=== PATIENT | female | born 1950 | race Caucasian/White ===

== ENCOUNTER 2017-06-29 10:29 | Observation (INO) | payer MEDICARE, OTHER ==
[~2017-06-29] VITALS: Ht 162.6 cm; Wt 78.1 kg
[~2017-06-29 10:29] MED LIST: ACET325 PO; Augmentin 500-1 EACH PO; Bystolic10 MG; DIGO.25 PO; FURO20 PO; GUAIFENESIN ER600 MG PO; LISI5 PO; METO25 PO; METO50 PO; Micro-K10 MEQ PO; Norco 5-325 Ta1 EACH PO; PANT40 PO; SPIR25 PO; SPIR50 PO; XARELTO10 MG PO; XARELTO20 MG PO
[2017-06-29 11:12] LABS: BASOPHILS ABSOLUTE AUTO 0.02 K/mm3 (0.00-0.23); BASOPHILS PERCENT AUTO 0 % (0-2); EOSINOPHILS ABSOLUTE AUTO 0.11 K/mm3 (0.00-0.68); EOSINOPHILS PERCENT AUTO 1 % (0-6); Hematocrit 45.4 % (33.0-51.0); Hemoglobin 14.7 g/dL (11.5-16.0); IMMATURE GRAN ABSOLUTE AUTO 0.02 K/mm3 (0.00-0.10); IMMATURE GRAN PERCENT AUTO 0 % (0-1); LYMPHOCYTES ABSOLUTE AUTO 1.44 K/mm3 (0.84-5.20); LYMPHOCYTES PERCENT AUTO 16 % (21-46); MONOCYTES ABSOLUTE AUTO 0.95 K/mm3 (0.16-1.47); MONOCYTES PERCENT AUTO 10 % (4-13); Mean Corpuscular HGB 30.6 pg (26.0-34.0); Mean Corpuscular HGB Conc 32.4 g/dL (31.5-36.5); Mean Corpuscular Volume 94 fL (80-100); Mean Platelet Volume 12.1 fL (9.1-12.4); NEUTROPHILS ABSOLUTE AUTO 6.68 K/mm3 (1.96-9.15); NEUTROPHILS PERCENT AUTO 73 % (41-73); Platelet Count 230 K/mm3 (150-400); RDW Coefficient Variation 15.1 % (11.7-14.2); RDW Standard Deviation 51.8 fL (35.1-46.3); Red Blood Cell Count 4.81 M/mm3 (3.80-5.20); White Blood Cell Count 9.22 K/mm3 (4.00-11.30)
[2017-06-29 11:37] LABS: Alanine Aminotransfer (ALT/SGP 22 U/L (12-78); Albumin, Blood 3.6 g/dL (3.4-5.0); Albumin/Globulin Ratio 1.1 (0.8-1.8); Alk Phos 72 U/L (50-136); Anion Gap 6 mmol/L (6-16); Aspartate Aminotrans (AST/SGOT 19 U/L (12-37); Bilirubin, Total 1.3 mg/dL (0.1-1.0); Blood Urea Nitrogen 24 mg/dL (8-24); Bun/Creatinine Ratio 30.4 (12.0-20.0); CO2, Blood 29 mmol/L (21-32); Calcium, Blood 9.2 mg/dL (8.5-10.1); Chloride, Blood 107 mmol/L (98-108); Creatinine, Blood 0.79 mg/dL (0.40-1.00); Globulin, Blood 3.3 g/dL (2.2-4.0); Glomerular Filtration Rate >60 (60-); Glucose, Blood 103 mg/dL (70-99); Potassium, Blood 3.9 mmol/L (3.5-5.5); Sodium, Blood 142 mmol/L (136-145); Total Protein, Blood 6.9 g/dL (6.4-8.2); Troponin I 0.023 ng/mL (0.000-0.040)
[2017-06-29] MEDS ORDERED: Hair, Skin & N1 EACH PO (17:11)
[2017-06-29] MEDS ORDERED: VITAMIN D32000 UNIT PO (17:12)
[2017-06-29] MEDS ORDERED: BIOTIN5000 MCG (17:13)
[2017-06-29] MEDS ORDERED: CYAN500 PO (17:13)
[2017-06-29] MEDS ORDERED: [UNRECOGNIZED DRUG - OTHER] (17:15)
[2017-06-29] MEDS ORDERED: Fish Oil 10001000 MG GT (17:15)
[2017-06-30 04:33] LABS: BASOPHILS ABSOLUTE AUTO 0.03 K/mm3 (0.00-0.23); BASOPHILS PERCENT AUTO 0 % (0-2); EOSINOPHILS ABSOLUTE AUTO 0.22 K/mm3 (0.00-0.68); EOSINOPHILS PERCENT AUTO 3 % (0-6); Hematocrit 42.2 % (33.0-51.0); Hemoglobin 13.6 g/dL (11.5-16.0); IMMATURE GRAN ABSOLUTE AUTO 0.02 K/mm3 (0.00-0.10); IMMATURE GRAN PERCENT AUTO 0 % (0-1); LYMPHOCYTES ABSOLUTE AUTO 1.14 K/mm3 (0.84-5.20); LYMPHOCYTES PERCENT AUTO 14 % (21-46); MONOCYTES ABSOLUTE AUTO 0.92 K/mm3 (0.16-1.47); MONOCYTES PERCENT AUTO 11 % (4-13); Mean Corpuscular HGB 30.2 pg (26.0-34.0); Mean Corpuscular HGB Conc 32.2 g/dL (31.5-36.5); Mean Corpuscular Volume 94 fL (80-100); Mean Platelet Volume 11.7 fL (9.1-12.4); NEUTROPHILS ABSOLUTE AUTO 5.85 K/mm3 (1.96-9.15); NEUTROPHILS PERCENT AUTO 72 % (41-73); Platelet Count 191 K/mm3 (150-400); RDW Standard Deviation 50.9 fL (35.1-46.3); White Blood Cell Count 8.18 K/mm3 (4.00-11.30)
[2017-06-30 04:49] LABS: Anion Gap 4 mmol/L (6-16); Blood Urea Nitrogen 25 mg/dL (8-24); Bun/Creatinine Ratio 28.7 (12.0-20.0); CO2, Blood 36 mmol/L (21-32); Calcium, Blood 8.6 mg/dL (8.5-10.1); Chloride, Blood 106 mmol/L (98-108); Creatinine, Blood 0.87 mg/dL (0.40-1.00); Glomerular Filtration Rate >60 (60-); Glucose, Blood 97 mg/dL (70-99); Sodium, Blood 146 mmol/L (136-145)
[2017-07-01 06:21] LABS: Anion Gap 4 mmol/L (6-16); Blood Urea Nitrogen 26 mg/dL (8-24); Bun/Creatinine Ratio 34.9 (12.0-20.0); CO2, Blood 36 mmol/L (21-32); Calcium, Blood 8.9 mg/dL (8.5-10.1); Chloride, Blood 104 mmol/L (98-108); Creatinine, Blood 0.75 mg/dL (0.40-1.00); Glomerular Filtration Rate >60 (60-); Glucose, Blood 92 mg/dL (70-99); Potassium, Blood 3.8 mmol/L (3.5-5.5); Sodium, Blood 144 mmol/L (136-145)
[2017-07-01] MEDS ORDERED: LISI5 PO (08:29)
[2017-07-01] MEDS ORDERED: Nicoderm Cq1 EAC1 TOP (08:29)
[2017-07-01] MEDS ORDERED: Coreg12.5 MG PO (08:29)
[2017-07-01] MEDS ORDERED: XARELTO20 MG PO (08:30)
[2017-07-01] MEDS ORDERED: Micro-K10 MEQ PO (08:30)
[2017-07-01] MEDS ORDERED: FURO40 PO (08:30)
[2018-03-29] MEDS ORDERED: Amox Tr-K Clv1 EAC2 PO (17:22)
[2018-04-01] MEDS ORDERED: METO50 PO (14:42)
[2018-05-09] MEDS ORDERED: FURO80 PO (11:40)
== END 2017-07-01 12:04 | disposition home or self-care (01) ==
LOC: ER 10:29 → MEDS 10:30 → ERHOLD 10:30 → ER 11:55 → ERHOLD 11:55 → PCU 16:40 → MEDS 06-30 11:43 → ENPENDDIS 07-01 07:51 → MEDS 07-01 12:04
PROVIDERS: Emergency Medicine; Internal Medicine
DX: I48.2 Chronic atrial fibrillation (principal); I11.0 Hypertensive heart disease with heart failure; I50.21 Acute systolic (congestive) heart failure; J44.9 Chronic obstructive pulmonary disease, unspecified; F17.200 Nicotine dependence, unspecified, uncomplicated; Z90.710 Acquired absence of both cervix and uterus; Z79.01 Long term (current) use of anticoagulants; Z79.899 Other long term (current) drug therapy; Z98.890 Other specified postprocedural states
CPT/HCPCS: 36415; 51702; 71046; 80048; 80053; 83880; 84484; 85025; 93005; 93010; 94640; 94760; 96374; 96375; 96376; 99285; G0378; J1940

== ENCOUNTER 2017-09-13 19:10 | Inpatient (IN) | payer MEDICARE, OTHER ==
[~2017-09-13] VITALS: Ht 162.6 cm; Wt 75.8 kg
[~2017-09-13 19:10] MED LIST changes: -ASPI81CH PO; -LOSA25 PO
[2017-09-13 20:35] LABS: Source, Urine Catheter
[2017-09-13 20:37] LABS: Bilirubin, Urine Neg (Neg); Blood, Urine Neg (Neg); Glucose Qualitative, Urine Neg (Neg); Ketones, Urine Neg (Neg); Leukocyte Esterase, Urine Neg (Neg); Nitrite, Urine Neg (Neg); Protein, Urine Neg (Neg); Urobilinogen, Urine NORM (Normal)
[2017-09-13 20:50] LABS: Appearance, Urine Clear (Clear); Color, Urine Yellow (P-Yellow)
[2017-09-14 05:38] LABS: Alanine Aminotransfer (ALT/SGP 24 U/L (12-78); Albumin, Blood 3.3 g/dL (3.4-5.0); Albumin/Globulin Ratio 0.9 (0.8-1.8); Alk Phos 82 U/L (50-136); Anion Gap 5 mmol/L (6-16); Aspartate Aminotrans (AST/SGOT 24 U/L (12-37); Bilirubin, Total 1.1 mg/dL (0.1-1.0); Blood Urea Nitrogen 26 mg/dL (8-24); Bun/Creatinine Ratio 30.7 (12.0-20.0); CO2, Blood 33 mmol/L (21-32); Calcium, Blood 9.4 mg/dL (8.5-10.1); Chloride, Blood 106 mmol/L (98-108); Creatinine, Blood 0.85 mg/dL (0.40-1.00); Globulin, Blood 3.6 g/dL (2.2-4.0); Glomerular Filtration Rate >60 (60-); Glucose, Blood 101 mg/dL (70-99); Potassium, Blood 3.7 mmol/L (3.5-5.5); Sodium, Blood 144 mmol/L (136-145); Total Protein, Blood 6.9 g/dL (6.4-8.2)
[2017-09-14] MEDS ORDERED: XARELTO20 MG PO (11:51)
[2017-09-14] MEDS ORDERED: LISI5 PO (12:07)
[2017-09-14 14:12] LABS: Mean Platelet Volume 11.9 fL (9.1-12.4); Platelet Count 202 K/mm3 (150-400)
[2017-09-14 14:20] LABS: International Normalized Ratio 1.12; Prothrombin Time Results 11.7 Sec (9.7-11.5)
[2017-09-14 16:10] LABS: Lactate Dehydrogenase, Body Fl 52 U/L; Protein, Body Fluid 1.6 g/dL
[2017-09-14 16:32] LABS: Automated BF WBC Count 0.186 K/mm3 (0-999); Body Fluid WBC Count 186 /mm3 (0-999)
[2017-09-14 18:44] LABS: RBC Count, Body Fluid 218 /mm3 (0-0)
[2017-09-14 19:00] LABS: Appearance, Body Fluid Clear (Clear); Color, Body Fluid Yellow (None-Yellow)
[2017-09-14 19:02] LABS: Total Cell Count, Body Fluid 100
[2017-09-16 06:02] LABS: Anion Gap 5 mmol/L (6-16); Blood Urea Nitrogen 34 mg/dL (8-24); Bun/Creatinine Ratio 35.6 (12.0-20.0); CO2, Blood 36 mmol/L (21-32); Calcium, Blood 8.9 mg/dL (8.5-10.1); Chloride, Blood 101 mmol/L (98-108); Creatinine, Blood 0.96 mg/dL (0.40-1.00); Glomerular Filtration Rate >60 (60-); Glucose, Blood 93 mg/dL (70-99); Potassium, Blood 3.9 mmol/L (3.5-5.5); Sodium, Blood 142 mmol/L (136-145)
[2017-09-17] MEDS ORDERED: ASPI81CH PO (13:18)
[2017-09-17] MEDS ORDERED: LOSA25 PO (13:18)
[2017-09-17] MEDS ORDERED: METO50 PO (13:19)
== END 2017-09-17 12:43 | disposition home or self-care (01) | DRG 291 ==
LOC: ER 19:10 → MEDS 20:30 → ENPENDDIS 09-17 11:00 → MEDS 09-17 12:43
PROVIDERS: Emergency Medicine; Internal Medicine; Radiology Diagnostic Radiology
PROC: 0W993ZX Drainage of Right Pleural Cavity, Percutaneous Approach, Diagnostic (ICD-10-PCS; principal; 2017-09-14)
DX: I11.0 Hypertensive heart disease with heart failure (principal); J96.00 Acute respiratory failure, unspecified whether with hypoxia or hypercapnia; J90 Pleural effusion, not elsewhere classified; I50.23 Acute on chronic systolic (congestive) heart failure; I48.2 Chronic atrial fibrillation; F17.210 Nicotine dependence, cigarettes, uncomplicated; Z91.14 Patient's other noncompliance with medication regimen; Z79.899 Other long term (current) drug therapy
CPT/HCPCS: 32555; 36415; 51702; 71045; 80048; 80053; 81003; 83615; 83880; 84157; 85049; 85610; 85730; 87070; 87075; 87205; 89051; 93005; 93010; 93306; 96374; 99285; J1650; J1940; J2060

== ENCOUNTER → 2017-09-13 | Outpatient (CLI) | payer MEDICARE, OTHER ==
[~2017-09-13] MED LIST changes: +ASPI81CH PO; +BIOTIN5000 MCG; +CYAN500 PO; +Coreg12.5 MG PO; +FURO40 PO; +Fish Oil 10001000 MG GT; +Hair, Skin & N1 EACH PO; +LOSA25 PO; +Nicoderm Cq1 EAC1 TOP; +VITAMIN D32000 UNIT PO; +[UNRECOGNIZED DRUG - OTHER]
[2017-09-13 18:01] LABS: BASOPHILS ABSOLUTE AUTO 0.05 K/mm3 (0.00-0.23); BASOPHILS PERCENT AUTO 1 % (0-2); EOSINOPHILS PERCENT AUTO 1 % (0-6); Hematocrit 42.4 % (33.0-51.0); Hemoglobin 13.9 g/dL (11.5-16.0); IMMATURE GRAN ABSOLUTE AUTO 0.03 K/mm3 (0.00-0.10); IMMATURE GRAN PERCENT AUTO 0 % (0-1); LYMPHOCYTES ABSOLUTE AUTO 0.99 K/mm3 (0.84-5.20); LYMPHOCYTES PERCENT AUTO 13 % (21-46); MONOCYTES ABSOLUTE AUTO 0.73 K/mm3 (0.16-1.47); MONOCYTES PERCENT AUTO 9 % (4-13); Mean Corpuscular HGB Conc 32.8 g/dL (31.5-36.5); Mean Corpuscular Volume 94 fL (80-100); Mean Platelet Volume 12.5 fL (9.1-12.4); NEUTROPHILS ABSOLUTE AUTO 5.97 K/mm3 (1.96-9.15); NEUTROPHILS PERCENT AUTO 76 % (41-73); Platelet Count 191 K/mm3 (150-400); RDW Coefficient Variation 15.9 % (11.7-14.2); RDW Standard Deviation 55.3 fL (35.1-46.3); Red Blood Cell Count 4.49 M/mm3 (3.80-5.20); White Blood Cell Count 7.87 K/mm3 (4.00-11.30)
[2017-09-13 18:20] LABS: Anion Gap 5 mmol/L (6-16); Blood Urea Nitrogen 19 mg/dL (8-24); Bun/Creatinine Ratio 21.3 (12.0-20.0); CO2, Blood 35 mmol/L (21-32); Calcium, Blood 9.4 mg/dL (8.5-10.1); Chloride, Blood 109 mmol/L (98-108); Creatinine, Blood 0.89 mg/dL (0.40-1.00); Glomerular Filtration Rate >60 (60-); Glucose, Blood 110 mg/dL (70-99); Potassium, Blood 3.9 mmol/L (3.5-5.5); Sodium, Blood 149 mmol/L (136-145); Thyroid Stimulating Hormone 2.826 uIU/mL (0.360-4.800); Troponin I 0.033 ng/mL (0.000-0.040)
== END | disposition home or self-care (01) ==
LOC: LAB SHORT 17:56 → LAB EV 17:56
PROVIDERS: Family Medicine
DX: I48.91 Unspecified atrial fibrillation (principal); R53.83 Other fatigue
CPT/HCPCS: 80048; 83880; 84443; 84484; 85025

== ENCOUNTER 2018-02-20 09:48 | Emergency (ER) | payer MEDICARE, OTHER ==
[~2018-02-20] VITALS: Ht 165.1 cm; Wt 72.6 kg
[~2018-02-20 09:48] MED LIST changes: +ASPI81CH PO; +LOSA25 PO
== END 2018-02-20 11:23 | disposition home or self-care (01) ==
LOC: ER 09:48
DX: R04.0 Epistaxis (principal); I50.9 Heart failure, unspecified; I48.91 Unspecified atrial fibrillation; F17.210 Nicotine dependence, cigarettes, uncomplicated; Z79.899 Other long term (current) drug therapy; Z79.82 Long term (current) use of aspirin
CPT/HCPCS: 99283

== ENCOUNTER 2018-03-20 17:39 | Emergency (ER) | payer MEDICARE, OTHER ==
[~2018-03-20] VITALS: Ht 162.6 cm; Wt 75.8 kg
[2018-03-20 17:59] LABS: BASOPHILS ABSOLUTE AUTO 0.08 K/mm3 (0.00-0.23); BASOPHILS PERCENT AUTO 1 % (0-2); EOSINOPHILS ABSOLUTE AUTO 0.25 K/mm3 (0.00-0.68); EOSINOPHILS PERCENT AUTO 3 % (0-6); Hematocrit 39.8 % (33.0-51.0); Hemoglobin 12.3 g/dL (11.5-16.0); IMMATURE GRAN ABSOLUTE AUTO 0.02 K/mm3 (0.00-0.10); IMMATURE GRAN PERCENT AUTO 0 % (0-1); LYMPHOCYTES PERCENT AUTO 14 % (21-46); MONOCYTES ABSOLUTE AUTO 1.01 K/mm3 (0.16-1.47); MONOCYTES PERCENT AUTO 12 % (4-13); Mean Corpuscular HGB 30.8 pg (26.0-34.0); Mean Corpuscular HGB Conc 30.9 g/dL (31.5-36.5); Mean Corpuscular Volume 100 fL (80-100); Mean Platelet Volume 10.7 fL (9.1-12.4); NEUTROPHILS ABSOLUTE AUTO 6.04 K/mm3 (1.96-9.15); NEUTROPHILS PERCENT AUTO 70 % (41-73); Platelet Count 243 K/mm3 (150-400); RDW Coefficient Variation 14.2 % (11.7-14.2); RDW Standard Deviation 51.7 fL (35.1-46.3)
[2018-03-20 18:11] LABS: International Normalized Ratio 1.07
== END 2018-03-20 19:05 | disposition home or self-care (01) ==
LOC: ER 17:39
PROVIDERS: Emergency Medicine
DX: R04.0 Epistaxis (principal); I50.9 Heart failure, unspecified; I48.91 Unspecified atrial fibrillation; F17.210 Nicotine dependence, cigarettes, uncomplicated; Z79.899 Other long term (current) drug therapy
CPT/HCPCS: 30901; 36415; 85025; 85610; 99283

== ENCOUNTER 2018-03-21 10:58 | Emergency (ER) | payer MEDICARE, OTHER ==
[~2018-03-21] VITALS: Ht 162.6 cm; Wt 74.8 kg
== END 2018-03-21 13:38 | disposition home or self-care (01) ==
LOC: ER 10:58
DX: R04.0 Epistaxis (principal); I50.9 Heart failure, unspecified; F17.210 Nicotine dependence, cigarettes, uncomplicated
CPT/HCPCS: 30801; 99283-25

== ENCOUNTER 2018-04-18 15:11 | Inpatient (IN) | payer MEDICARE, OTHER ==
[~2018-04-18] VITALS: Ht 162.6 cm; Wt 81.3 kg
[~2018-04-18 15:11] MED LIST changes: +Amox Tr-K Clv1 EAC2 PO
[2018-04-18 15:47] LABS: BASOPHILS ABSOLUTE AUTO 0.07 K/mm3 (0.00-0.23); BASOPHILS PERCENT AUTO 1 % (0-2); EOSINOPHILS ABSOLUTE AUTO 0.06 K/mm3 (0.00-0.68); EOSINOPHILS PERCENT AUTO 1 % (0-6); Hematocrit 32.5 % (33.0-51.0); IMMATURE GRAN ABSOLUTE AUTO 0.03 K/mm3 (0.00-0.10); IMMATURE GRAN PERCENT AUTO 0 % (0-1); LYMPHOCYTES ABSOLUTE AUTO 0.95 K/mm3 (0.84-5.20); LYMPHOCYTES PERCENT AUTO 10 % (21-46); MONOCYTES ABSOLUTE AUTO 1.13 K/mm3 (0.16-1.47); MONOCYTES PERCENT AUTO 11 % (4-13); Mean Corpuscular HGB 28.2 pg (26.0-34.0); Mean Corpuscular HGB Conc 30.8 g/dL (31.5-36.5); Mean Corpuscular Volume 92 fL (80-100); NEUTROPHILS PERCENT AUTO 78 % (41-73); Platelet Count 330 K/mm3 (150-400); RDW Standard Deviation 46.9 fL (35.1-46.3); Red Blood Cell Count 3.55 M/mm3 (3.80-5.20); White Blood Cell Count 10.04 K/mm3 (4.00-11.30)
[2018-04-18 16:04] LABS: Alanine Aminotransfer (ALT/SGP 20 U/L (12-78); Albumin, Blood 3.5 g/dL (3.4-5.0); Albumin/Globulin Ratio 0.9 (0.8-1.8); Alk Phos 111 U/L (50-136); Anion Gap 11 mmol/L (6-16); Aspartate Aminotrans (AST/SGOT 21 U/L (12-37); Bilirubin, Total 1.7 mg/dL (0.1-1.0); Blood Urea Nitrogen 18 mg/dL (8-24); Bun/Creatinine Ratio 23.6 (12.0-20.0); CO2, Blood 26 mmol/L (21-32); Calcium, Blood 9.1 mg/dL (8.5-10.1); Chloride, Blood 105 mmol/L (98-108); Creatinine, Blood 0.76 mg/dL (0.40-1.00); Globulin, Blood 3.7 g/dL (2.2-4.0); Glomerular Filtration Rate >60 (60-); Glucose, Blood 94 mg/dL (70-99); Potassium, Blood 4.2 mmol/L (3.5-5.5); Sodium, Blood 142 mmol/L (136-145); Total Protein, Blood 7.2 g/dL (6.4-8.2); Troponin I 0.024 ng/mL (0.000-0.040)
[2018-04-18] MEDS ORDERED: METO25 PO (18:32)
[2018-04-18 18:43] LABS: PCO2 Arterial 47.7 mmHg (35-45); PO2 Arterial 59.8 mmHg (80-100); pH Blood Arterial 7.39 (7.35-7.45)
[2018-04-19 02:21] LABS: BASOPHILS ABSOLUTE AUTO 0.07 K/mm3 (0.00-0.23); BASOPHILS PERCENT AUTO 1 % (0-2); EOSINOPHILS ABSOLUTE AUTO 0.17 K/mm3 (0.00-0.68); EOSINOPHILS PERCENT AUTO 2 % (0-6); Hematocrit 30.7 % (33.0-51.0); Hemoglobin 9.3 g/dL (11.5-16.0); IMMATURE GRAN ABSOLUTE AUTO 0.01 K/mm3 (0.00-0.10); IMMATURE GRAN PERCENT AUTO 0 % (0-1); LYMPHOCYTES ABSOLUTE AUTO 1.08 K/mm3 (0.84-5.20); LYMPHOCYTES PERCENT AUTO 14 % (21-46); MONOCYTES ABSOLUTE AUTO 1.21 K/mm3 (0.16-1.47); MONOCYTES PERCENT AUTO 16 % (4-13); Mean Corpuscular HGB 28.1 pg (26.0-34.0); Mean Corpuscular HGB Conc 30.3 g/dL (31.5-36.5); Mean Corpuscular Volume 93 fL (80-100); NEUTROPHILS ABSOLUTE AUTO 5.03 K/mm3 (1.96-9.15); NEUTROPHILS PERCENT AUTO 67 % (41-73); Platelet Count 297 K/mm3 (150-400); RDW Standard Deviation 47.1 fL (35.1-46.3); Red Blood Cell Count 3.31 M/mm3 (3.80-5.20); White Blood Cell Count 7.57 K/mm3 (4.00-11.30)
[2018-04-19 02:47] LABS: Bun/Creatinine Ratio 22.8 (12.0-20.0); Calcium, Blood 8.9 mg/dL (8.5-10.1); Creatinine, Blood 1.14 mg/dL (0.40-1.00); Potassium, Blood 3.9 mmol/L (3.5-5.5)
[2018-04-19 08:24] LABS: Percent Saturation 6.2 % (15.0-50.0)
[2018-04-20 06:47] LABS: Hematocrit 32.1 % (33.0-51.0); Hemoglobin 9.6 g/dL (11.5-16.0)
[2018-04-20 07:01] LABS: Anion Gap 3 mmol/L (6-16); Blood Urea Nitrogen 28 mg/dL (8-24); Bun/Creatinine Ratio 31.5 (12.0-20.0); CO2, Blood 37 mmol/L (21-32); Calcium, Blood 8.7 mg/dL (8.5-10.1); Chloride, Blood 102 mmol/L (98-108); Creatinine, Blood 0.89 mg/dL (0.40-1.00); Glomerular Filtration Rate >60 (60-); Glucose, Blood 95 mg/dL (70-99); Potassium, Blood 4.1 mmol/L (3.5-5.5); Sodium, Blood 142 mmol/L (136-145)
[2018-04-21 04:25] LABS: Hematocrit 32.8 % (33.0-51.0); Hemoglobin 9.7 g/dL (11.5-16.0)
[2018-04-21 04:43] LABS: Anion Gap 3 mmol/L (6-16); Blood Urea Nitrogen 29 mg/dL (8-24); Bun/Creatinine Ratio 35.1 (12.0-20.0); CO2, Blood 41 mmol/L (21-32); Calcium, Blood 8.8 mg/dL (8.5-10.1); Chloride, Blood 99 mmol/L (98-108); Creatinine, Blood 0.83 mg/dL (0.40-1.00); Glomerular Filtration Rate >60 (60-); Glucose, Blood 94 mg/dL (70-99); Sodium, Blood 143 mmol/L (136-145)
[2018-04-22] MEDS ORDERED: ASPI81CH PO (14:31)
[2018-04-22] MEDS ORDERED: LOSA25 PO (14:32)
== END 2018-04-22 16:12 | disposition home or self-care (01) | DRG 291 ==
LOC: ER 15:11 → PCU 17:39 → MEDS 18:20 → PCU 18:21 → MEDS 04-21 16:15 → ENPENDDIS 04-22 10:08 → MEDS 04-22 16:12
PROVIDERS: Emergency Medicine; Internal Medicine
PROC: 5A09357 Assistance with Respiratory Ventilation, Less than 24 Consecutive Hours, Continuous Positive Airway Pressure (ICD-10-PCS; principal; 2018-04-20)
DX: I11.0 Hypertensive heart disease with heart failure (principal); J96.01 Acute respiratory failure with hypoxia; I50.23 Acute on chronic systolic (congestive) heart failure; I48.91 Unspecified atrial fibrillation; I42.9 Cardiomyopathy, unspecified; R00.0 Tachycardia, unspecified; F17.210 Nicotine dependence, cigarettes, uncomplicated; D64.9 Anemia, unspecified; D50.0 Iron deficiency anemia secondary to blood loss (chronic); R42 Dizziness and giddiness; R10.9 Unspecified abdominal pain; Z91.19 Patient's noncompliance with other medical treatment and regimen; Z91.14 Patient's other noncompliance with medication regimen; Z79.899 Other long term (current) drug therapy; Z87.19 Personal history of other diseases of the digestive system
CPT/HCPCS: 36415; 36600; 51702; 71045; 71046; 80048; 80053; 82728; 82803; 83540; 83550; 83735; 83880; 84484; 85014; 85018; 85025; 92610; 93005; 93010; 94640; 94660; 94667; 94761; 94762; 96374; 96375; 99285-25; G8996; G8997; G8998; J1940

== ENCOUNTER 2018-08-07 20:40 | Inpatient (IN) | payer MEDICARE, OTHER ==
[~2018-08-07] VITALS: Ht 162.6 cm; Wt 84.2 kg
[~2018-08-07 20:40] MED LIST changes: +FURO80 PO
[2018-08-07 21:33] LABS: BASOPHILS ABSOLUTE AUTO 0.06 K/mm3 (0.00-0.23); BASOPHILS PERCENT AUTO 1 % (0-2); EOSINOPHILS ABSOLUTE AUTO 0.12 K/mm3 (0.00-0.68); EOSINOPHILS PERCENT AUTO 2 % (0-6); Hemoglobin 12.6 g/dL (11.5-16.0); IMMATURE GRAN ABSOLUTE AUTO 0.02 K/mm3 (0.00-0.10); IMMATURE GRAN PERCENT AUTO 0 % (0-1); LYMPHOCYTES ABSOLUTE AUTO 0.99 K/mm3 (0.84-5.20); LYMPHOCYTES PERCENT AUTO 13 % (21-46); MONOCYTES ABSOLUTE AUTO 0.88 K/mm3 (0.16-1.47); MONOCYTES PERCENT AUTO 11 % (4-13); Mean Corpuscular HGB 28.4 pg (26.0-34.0); Mean Corpuscular HGB Conc 30.7 g/dL (31.5-36.5); Mean Corpuscular Volume 93 fL (80-100); Mean Platelet Volume 10.6 fL (9.1-12.4); NEUTROPHILS ABSOLUTE AUTO 5.62 K/mm3 (1.96-9.15); NEUTROPHILS PERCENT AUTO 73 % (41-73); Platelet Count 262 K/mm3 (150-400); RDW Coefficient Variation 16.4 % (11.7-14.2); RDW Standard Deviation 55.7 fL (35.1-46.3); Red Blood Cell Count 4.43 M/mm3 (3.80-5.20); White Blood Cell Count 7.69 K/mm3 (4.00-11.30)
[2018-08-07 21:56] LABS: Alanine Aminotransfer (ALT/SGP 12 U/L (12-78); Albumin, Blood 3.2 g/dL (3.4-5.0); Albumin/Globulin Ratio 0.9 (0.8-1.8); Alk Phos 94 U/L (50-136); Anion Gap 3 mmol/L (6-16); Aspartate Aminotrans (AST/SGOT 15 U/L (12-37); Bilirubin, Total 0.8 mg/dL (0.1-1.0); Blood Urea Nitrogen 18 mg/dL (8-24); Bun/Creatinine Ratio 21.2 (12.0-20.0); CO2, Blood 34 mmol/L (21-32); Calcium, Blood 9.1 mg/dL (8.5-10.1); Chloride, Blood 107 mmol/L (98-108); Creatinine, Blood 0.85 mg/dL (0.40-1.00); Globulin, Blood 3.5 g/dL (2.2-4.0); Glomerular Filtration Rate >60 (60-); Glucose, Blood 96 mg/dL (70-99); Potassium, Blood 4.3 mmol/L (3.5-5.5); Sodium, Blood 144 mmol/L (136-145); Total Protein, Blood 6.7 g/dL (6.4-8.2)
[2018-08-08 01:12] LABS: PCO2 Arterial 58.5 mmHg (35-45); pH Blood Arterial 7.36 (7.35-7.45)
[2018-08-08] MEDS ORDERED: TOCO1000 PO (02:04)
[2018-08-08] MEDS ORDERED: Selenium100 MCG PO (02:05)
[2018-08-08] MEDS ORDERED: MAGNESIUM PO (02:06)
[2018-08-08] MEDS ORDERED: [UNRECOGNIZED DRUG - OTHER] PO (02:07)
[2018-08-08] MEDS ORDERED: POTCHL10ER PO (02:08)
[2018-08-08 04:31] LABS: Anion Gap 4 mmol/L (6-16); Blood Urea Nitrogen 17 mg/dL (8-24); Bun/Creatinine Ratio 20.2 (12.0-20.0); CO2, Blood 35 mmol/L (21-32); Calcium, Blood 9.4 mg/dL (8.5-10.1); Chloride, Blood 106 mmol/L (98-108); Creatinine, Blood 0.84 mg/dL (0.40-1.00); Glomerular Filtration Rate >60 (60-); Glucose, Blood 127 mg/dL (70-99); Potassium, Blood 3.9 mmol/L (3.5-5.5); Sodium, Blood 145 mmol/L (136-145)
--- NOTE | 2018-08-08 06:43 | NUR ---
SHIFT SUMMARY PT RESTING IN ROOM COMFORTABLY. PT ARRIVED TO UNIT FROM ED AT APPROX 0200. PT HAD CHF EXACERBATION AND HAD DIFFICULTY BREATHING IN THE ED. PT TO UNIT ON STRETCHER WAS ABLE TO STAND AND AMBULATE TO HOSP BED. PT BECOMES SOB AND DESATS SLIGHTLY W/ AMBULATION. PT DENIES OTHER PAIN AT THIS TIME. SATS >92% ON 3L NC. MODERATE EDEMA NOTED TO BLE. PT REPORTS EDEMA HAS BEEN GETTING WORSE OVER SEVERAL DAYS. CALL LIGHT IS IN REACH. BED ALARM ON FOR SAFETY.
--- NOTE | 2018-08-08 10:53 | NUR ---
PT SETTING UP IN BED RESTING. BP NOTED ELEVATED AND AM MEDS TO FOLLOW. PT IN NO DISTRESS BUT HR WILL ELEVATE WITH ACTIVITY, A FIB.
--- NOTE | 2018-08-08 11:01 | NUR ---
PT UP TO BATHROOM PER SELF, WILL FOLLOW.
--- NOTE | 2018-08-08 13:20 | NUR ---
ASSUMED CARE AND COMFORT OF THIS PATIENT FROM ALYSSA DRUMMOND. PT IS CURRENTLY SITTING UP IN BED WATCHING TV. O2 VIA NASAL CANNULA AT 3 LITERS. PT SPEAKS IN 2 OR 3 WORD SENTENCES. PURSED LIP BREATHING. FINISHED LUNCH APPROX 50%. CALL LIGHT IN REACH. LUNGS HAVE CRACKLES ON LOWER LEFT. DIM THROUGHOUT.
--- NOTE | 2018-08-08 13:35 | NUR ---
1300 REPORTED OFF TO ELIZABETH DRUMMOND.
--- NOTE | 2018-08-08 18:38 | NUR ---
END OF SHIFT SUMMARY; NO ACUTE CHANGES IN PATIENT CONDITION ARE NOTED THIS AFTERNOON. SHE HAS PLEASANT AFFECT. VITAL SIGNS ARE WNL. SHE REMAINS ON O2 2 LITERS THIS AFTERNOON VIA NASAL CANNULA. SHE HAS PLEASANT AFFECT AND IS COOPERATIVE WITH CARE. WILL CONTINUE TO MONITOR THIS PATIENT UNTIL REPORT AND HAND OFF TO NOC SHIFT RN.
[2018-08-09 04:24] LABS: Anion Gap 5 mmol/L (6-16); Blood Urea Nitrogen 25 mg/dL (8-24); Bun/Creatinine Ratio 28.2 (12.0-20.0); CO2, Blood 35 mmol/L (21-32); Calcium, Blood 9.2 mg/dL (8.5-10.1); Chloride, Blood 104 mmol/L (98-108); Creatinine, Blood 0.89 mg/dL (0.40-1.00); Glomerular Filtration Rate >60 (60-); Glucose, Blood 120 mg/dL (70-99); Magnesium, Blood 2.3 mg/dL (1.6-2.4); Potassium, Blood 4.1 mmol/L (3.5-5.5); Sodium, Blood 144 mmol/L (136-145)
--- NOTE | 2018-08-09 06:01 | NUR ---
SHIFT SUMMARY PT SLEEPING IN ROOM COMFORTABLY. NO ACUTE CHANGES IN STATUS T/O NIGHT. CALLED APPROPRIATELY, FOR SBA TO RR. BLE SHOWING MARKED DECREASE IN EDEMA. PT REPORTS BLE FEEL BETTER. PT ALSO REPORTS LESS SOB WHEN AMBULATING TO RR. EGG CRATE WAS ADDEDD TO BED FOR PT COMFORT. AND WAS MEDICATED PER EMAR FOR HEAD AND BACK ACHE. CALL LIGHT IN REACH.
--- NOTE | 2018-08-09 18:33 | NUR ---
SUMMARY PT ARRIVED TO UNIT FROM PCU THIS EVENING. MOVES INDEPENDENTLY IN ROOM. SOB W/EXERTION. +2 PITTING EDEMA NOTED TO BLE. LUNGS SOUND DIM IN BASES, R MORE SO THAN L. VOIDING LIGHT YELLOW URINE. REC'D LASIX THIS EVENING PER ORDERS. PLEASANT AND COOPERATIVE. CALL LIGHT IN REACH.
--- NOTE | 2018-08-10 05:15 | NUR ---
NO CHANGES DURING THE NIGHT. PT WAS ABLE TO SLEEP WELL. DOES GET UP AND AMBULATE TO BR WELL, BECOMES SOB BUT RECOVERS QUICKLY. REMAINS ON 3L NC AND BASELINE IS 2L AT HOME. PT WAS WEIGHED THIS AM AND HAS A 4LB LOSS SINCE ADMISSION. CALL LIGHT IN REACH.
[2018-08-10 08:32] LABS: Anion Gap 3 mmol/L (6-16); Blood Urea Nitrogen 26 mg/dL (8-24); Bun/Creatinine Ratio 30.3 (12.0-20.0); CO2, Blood 40 mmol/L (21-32); Chloride, Blood 100 mmol/L (98-108); Creatinine, Blood 0.86 mg/dL (0.40-1.00); Glomerular Filtration Rate >60 (60-); Glucose, Blood 89 mg/dL (70-99); Potassium, Blood 4.3 mmol/L (3.5-5.5); Sodium, Blood 143 mmol/L (136-145)
[2018-08-11 05:16] LABS: Anion Gap 0 mmol/L (6-16); Blood Urea Nitrogen 28 mg/dL (8-24); Bun/Creatinine Ratio 36.4 (12.0-20.0); CO2, Blood 43 mmol/L (21-32); Chloride, Blood 98 mmol/L (98-108); Creatinine, Blood 0.77 mg/dL (0.40-1.00); Glomerular Filtration Rate >60 (60-); Glucose, Blood 91 mg/dL (70-99); Potassium, Blood 4.2 mmol/L (3.5-5.5); Sodium, Blood 141 mmol/L (136-145)
[2018-08-11 05:17] LABS: Calcium, Blood 9.1 mg/dL (8.5-10.1); Magnesium, Blood 2.3 mg/dL (1.6-2.4)
--- NOTE | 2018-08-11 05:54 | NUR ---
SHIFT SUMMARY PT REMAINS ON FLOOR FOR ACUTE ON CHRONIC SYSTOLIC HEART FAILURE. SHE HAS BEEN REESTABLISHED ON HER MEDICATION REGIMEN AND PLAN IS FOR HER TO GO HOME TODAY AFTER SETTING UP AN OUTPATIENT APPOINTMENT WITH A PCP. PT IS MAINTAINING SATS GREATER THAN 95% AT 3L VIA NC. HOME DOSE IS 2L, WILL WEAN DOWN. PT AMBULATED IN HALLS THIS SHIFT. SHE REPORTS DECREASED DYSPNEA ON EXERTION. VSS. A-FIB ON TELE IN THE 90S. PT CONTINUES TO HAVE EDEMA TO BLE, IMPROVED WITH ELEVATION AND MEDICATIONS. WILL CTM UNTIL PASS TO NEXT SHIFT.
--- NOTE | 2018-08-12 04:46 | NUR ---
SHIFT SUMMARY: NO ACUTE CHANGES OVER NIGHT. A&O X4. VS WNL. PT DENIES CHEST PAIN T/O SHIFT. STILL COMPLAINS OF SOME SOB WITH EXERTION. PT HAS WEANED DOWN TO 2 L PER NC WHICH IS HER BASELINE. BLE EDEMA IMPROVING. PT INDEPENDENT IN ROOM. PLAN FOR PT TO DISCHARGE HOME PENDING POWER OUTTAGE.
--- NOTE | 2018-08-12 10:56 | NUR ---
ASSUMED CARE OF PATIENT AT THIS TIME.
--- NOTE | 2018-08-12 15:27 | NUR ---
O2: [facility] IN TO DELIVER SMALL O2 TANK TO PT. DC DELAYED R/T DISCHARGE NEEDS. CARE MANAGEMENT INVOLVED.
[2018-08-12] MEDS ORDERED: TORSE20 PO (17:21)
[2018-08-12] MEDS ORDERED: METO50ER PO (17:22)
[2018-08-12] MEDS ORDERED: ASPI81CH PO (17:23)
[2018-08-12] MEDS ORDERED: LOSA25 PO (17:23)
[2018-08-12] MEDS ORDERED: ALBU2.5V5 INH (17:23)
--- NOTE | 2018-08-12 17:30 | NUR ---
DISCHARGE: PT DC TO HOME AT THIS TIME. [facility] HERE TO DELIVER HOME O2. CM SET UP TRANSPORT HOME VIA [facility]. PT BROTHER WILL BE THERE TO ASSIST. PT MEDICATIONS FAXED TO [facility]ED PHARMACY. PT VERBALIZED UNDERSTANDING OF DC INSTRUCTIONS, DIET, MEDICATIONS, PROBLEMS TO REPORT AND FOLLOW UP. PT NEEDS TO CALL TO SCHEDULE FOLLOW UP APPOINTMENT SHE IS ESTABLISHING WITH A NEW PCP. PT LEFT VIA WHEELCHAIR TO VAN WITH [facility] [employer], BELONGINGS IN HAND.
== END 2018-08-12 18:29 | disposition home or self-care (01) | DRG 291 ==
LOC: ER 20:40 → PCU 08-08 00:18 → SURS 08-09 17:04
PROVIDERS: Hospitalist; Physician Assistant; ADMIT Family Medicine
DX: I11.0 Hypertensive heart disease with heart failure (principal); J96.21 Acute and chronic respiratory failure with hypoxia; J44.9 Chronic obstructive pulmonary disease, unspecified; Z99.81 Dependence on supplemental oxygen; Z91.14 Patient's other noncompliance with medication regimen; F17.210 Nicotine dependence, cigarettes, uncomplicated; I48.2 Chronic atrial fibrillation; I50.43 Acute on chronic combined systolic (congestive) and diastolic (congestive) heart failure; E66.9 Obesity, unspecified; Z68.30 Body mass index [BMI] 30.0-30.9, adult
CPT/HCPCS: 36415; 36600; 71046; 80048; 80053; 82803; 83735; 83880; 84484; 85025; 93005; 93010; 93306; 93970; 94760; 96374; 97116; 97161; 99285-25; J1650; J1940

== ENCOUNTER 2019-01-26 15:49 | Inpatient (IN) | payer MEDICARE, OTHER ==
[~2019-01-26] VITALS: Ht 162.6 cm; Wt 172.8 kg
[~2019-01-26 15:49] MED LIST changes: +ALBU2.5V5 INH; +MAGNESIUM PO; +POTCHL10ER PO; +Selenium100 MCG PO; +TOCO1000 PO; +[UNRECOGNIZED DRUG - OTHER] PO
[2019-01-26 16:37] LABS: BASOPHILS ABSOLUTE AUTO 0.08 K/mm3 (0.00-0.23); BASOPHILS PERCENT AUTO 1 % (0-2); EOSINOPHILS ABSOLUTE AUTO 0.26 K/mm3 (0.00-0.68); EOSINOPHILS PERCENT AUTO 3 % (0-6); Hemoglobin 13.9 g/dL (11.5-16.0); IMMATURE GRAN ABSOLUTE AUTO 0.02 K/mm3 (0.00-0.10); IMMATURE GRAN PERCENT AUTO 0 % (0-1); LYMPHOCYTES PERCENT AUTO 14 % (21-46); MONOCYTES ABSOLUTE AUTO 0.99 K/mm3 (0.16-1.47); MONOCYTES PERCENT AUTO 13 % (4-13); Mean Corpuscular HGB 30.9 pg (26.0-34.0); Mean Corpuscular HGB Conc 31.6 g/dL (31.5-36.5); Mean Corpuscular Volume 98 fL (80-100); NEUTROPHILS ABSOLUTE AUTO 5.23 K/mm3 (1.96-9.15); NEUTROPHILS PERCENT AUTO 68 % (41-73); Platelet Count 198 K/mm3 (150-400); RDW Coefficient Variation 15.3 % (11.7-14.2); White Blood Cell Count 7.68 K/mm3 (4.00-11.30)
[2019-01-26 17:00] LABS: Alanine Aminotransfer (ALT/SGP 17 U/L (12-78); Albumin, Blood 3.3 g/dL (3.4-5.0); Albumin/Globulin Ratio 0.9 (0.8-1.8); Alk Phos 87 U/L (50-136); Anion Gap 2 mmol/L (6-16); Aspartate Aminotrans (AST/SGOT 19 U/L (12-37); Bilirubin, Total 0.8 mg/dL (0.1-1.0); Blood Urea Nitrogen 15 mg/dL (8-24); Bun/Creatinine Ratio 20.8 (12.0-20.0); CO2, Blood 34 mmol/L (21-32); Calcium, Blood 9.3 mg/dL (8.5-10.1); Chloride, Blood 107 mmol/L (98-108); Creatinine, Blood 0.72 mg/dL (0.40-1.00); Globulin, Blood 3.5 g/dL (2.2-4.0); Glomerular Filtration Rate >60 (60-); Glucose, Blood 94 mg/dL (70-99); Sodium, Blood 143 mmol/L (136-145); Total Protein, Blood 6.8 g/dL (6.4-8.2)
[2019-01-26 21:13] LABS: International Normalized Ratio 1.04
[2019-01-26] MEDS ORDERED: TORSE20 PO (21:27)
[2019-01-26] MEDS ORDERED: CHOL10002 PO (21:32)
[2019-01-26] MEDS ORDERED: Alph-E-Mixed400 UNIT (21:34)
[2019-01-26] MEDS ORDERED: MAGNESIUM CITR125 MG PO (21:35)
[2019-01-26] MEDS ORDERED: MULTI COMPLETE1 EACH PO (22:35)
[2019-01-27 03:53] LABS: Source, Urine Clean Catch
[2019-01-27 03:56] LABS: Bilirubin, Urine Neg (Neg); Blood, Urine Neg (Neg); Glucose Qualitative, Urine Neg (Neg); Ketones, Urine Neg (Neg); Leukocyte Esterase, Urine Neg (Neg); Nitrite, Urine Neg (Neg); Protein, Urine Neg (Neg); Specific Gravity, Urine 1.015 (1.003-1.022); Urobilinogen, Urine NORM (Normal)
[2019-01-27 03:58] LABS: Appearance, Urine Clear (Clear); Color, Urine Yellow (P-Yellow)
--- NOTE | 2019-01-27 04:59 | NUR ---
END OF SHIFT SUMMARY ASSUMED CARE OF PT FROM ED. AXO TALKING APPROPRIATELY TO STAFF, VERY TALKATIVE AND GOES OFF ON TANGENTS. HAS TO BE REDIRECTED. PT PRESENTS TO UNIT WITH SHALLOW BREATHING BUT SPO2 >94% ON 2L. THIS HAS LESSENED THE PATIENT HAS BEEN DIURESING. ALMOST 5L OUTPUT THIS SHIFT POST BUMEX IV DOSE. LUNGS SOUNDS CLEAR, BASES DIM BUT R R LOWER LOBE VERY DIM. PT IN AFIB, CHRONIC. PRESENTS WITH ULCER APPEARING WOUND ON R ANTERIOR LEG. DRESSED WIOTH GAUZE WRAP UPON ADMISSION, PICTURES IN CHART. LEGS EXTREMELY SWOLLEN, 3+ EDEMA. THIS APPEARS TO BE LESSENIG WOTH THE URINE OUTPUT. MARTIN NOTE STATES POSSIBILITY OF PE, HEPARING GTT INFSUING ORDERED. OTHERWISE, PT INDEPENDENT IN ROOM AND HAS BEEN IN ROOM RESTING/WATCHING TV SINCE ADMISSION. ORIENTED TO ROOM, USES CALL LIGHT APPROPRIATELY. WILL CONTINUE TO MONITOR PT UNTIL SHIFT CHANGE.
[2019-01-27 06:19] LABS: Hematocrit 44.1 % (33.0-51.0); Mean Corpuscular HGB 30.8 pg (26.0-34.0); Mean Corpuscular HGB Conc 31.7 g/dL (31.5-36.5); Mean Corpuscular Volume 97 fL (80-100); Mean Platelet Volume 11.1 fL (9.1-12.4); Platelet Count 195 K/mm3 (150-400); RDW Coefficient Variation 15.3 % (11.7-14.2); RDW Standard Deviation 54.6 fL (35.1-46.3); Red Blood Cell Count 4.55 M/mm3 (3.80-5.20); White Blood Cell Count 6.86 K/mm3 (4.00-11.30)
--- NOTE | 2019-01-27 06:26 | NUR ---
HEPARIN INFUSION DC'D ONCED ORDER TO DC RECEIVED.
[2019-01-27 06:34] LABS: Alanine Aminotransfer (ALT/SGP 17 U/L (12-78); Albumin, Blood 3.3 g/dL (3.4-5.0); Albumin/Globulin Ratio 0.9 (0.8-1.8); Alk Phos 84 U/L (50-136); Anion Gap 1 mmol/L (6-16); Aspartate Aminotrans (AST/SGOT 22 U/L (12-37); Bilirubin, Total 1.1 mg/dL (0.1-1.0); Blood Urea Nitrogen 13 mg/dL (8-24); Bun/Creatinine Ratio 18.6 (12.0-20.0); CO2, Blood 40 mmol/L (21-32); Calcium, Blood 9.3 mg/dL (8.5-10.1); Chloride, Blood 102 mmol/L (98-108); Globulin, Blood 3.6 g/dL (2.2-4.0); Glomerular Filtration Rate >60 (60-); Glucose, Blood 92 mg/dL (70-99); Potassium, Blood 3.8 mmol/L (3.5-5.5); Sodium, Blood 143 mmol/L (136-145); Total Protein, Blood 6.9 g/dL (6.4-8.2)
--- NOTE | 2019-01-27 15:37 | NUR ---
upon receiving an admit referral, I visited patient and found her walking in her room. Patient openly shares about her family, the tragedies she has endured and about her medical conditions. Patient also talks about her beautiful conversion to Confucianism and how in recent years she has moved away from her connection to God but her desire to be right with God again. I conduct a life review, provide pastoral dependency counselor and provide a prayer a forgiveness and recommitment for patient. Patient weeps through the prayer and voices appreciation.
--- NOTE | 2019-01-27 19:10 | NUR ---
ASSUME CARE: REPORT RECIEVED FROM SHADI OFF GOING RN.. LUNGS CLEAR UPPER LOBES WITH DECREASED SOUNDS IN THE BASES RESPIRATIONS REGULAR AND EASY WITH O2 IN PLACE AT 2L/MIN VIA NC. SPO2 [id number] [id number] SOFT WITH BOWEL SOUNDS FOUR QUADS.DRESSING TO R LOWER EXTREMITIY INTACT. CONTINUR TO MONITOR AND REPORT CHANGE IN PATIENT CONDITION
--- NOTE | 2019-01-27 19:53 | NUR ---
SHIFT SUMMARY PT A&Ox4. ANXIOUS BUT COOPERATIVE WITH CARE. PT RESTING IN BED DURING SHIFT, APPEARS TO BE SLEEPING INTERMITTENTLY. PT UP IND IN ROOM. PT REPORTS MILD PAIN IN RLE. WOUND ON RLE CLEANED AND NEW DRESSING PLACED. PT DENIES SOB, ON 2L O2 VIA NC WHICH IS BASELINE. LS DIM IN RLL. SPO2 >92%. PT DENIES NAUSEA, HAS GOOD APPETEITE. PT RECEIVING IV ANTIBIOTICS AND IV BUMEX. CLARIFIED ORDERS TO GIVE SECOND DOSE OF BUMEX AFTER DAILY ORDER D/C'D, PER DR COLEMAN CONTINUE WITH SECOND DOSE OF BUMEX. PT REPORTS FEELING BETTER, BREATHING EASIER. PT CHANGED TO MEDICAL STATUS WITH NO TELE PER DR COLEMAN VERBAL ORDER. ELEVATED BP NOTED, OTHER VSS. NO OTHER ACUTE CHANGES NOTED. REPORT GIVEN TO ONCOMING RN.
[2019-01-28 04:07] LABS: Anion Gap 3 mmol/L (6-16); Blood Urea Nitrogen 17 mg/dL (8-24); Bun/Creatinine Ratio 29.5 (12.0-20.0); CO2, Blood 39 mmol/L (21-32); Calcium, Blood 9.2 mg/dL (8.5-10.1); Chloride, Blood 100 mmol/L (98-108); Creatinine, Blood 0.58 mg/dL (0.40-1.00); Glomerular Filtration Rate >60 (60-); Glucose, Blood 94 mg/dL (70-99); Potassium, Blood 3.8 mmol/L (3.5-5.5); Sodium, Blood 142 mmol/L (136-145)
--- NOTE | 2019-01-28 05:11 | NUR ---
SHIFT SUMMARY RESTS QUIETLY WHEN UNDISTURBED. LUNG SOUNDS CLEAR UPPER LOBES DECREASED SOUNDS IN THE BASES. RESPIRATIONS REGULAR AND EASY AT REST WITH O2 IN PLACE AT 3L/MIN PER NC. ABDOMEN SOFT WITH BOWEL SOUNDS FOUR QUADS.VOIDS WIN URINE GAIT STEADY TO BATHROOM DRESSING TO R LEG DRY INTACT. CONTINUE TO MONITOR AND REPORT CHANGE IN PATIENT CONDITION.
--- NOTE | 2019-01-28 15:00 | NUR ---
LATE ENTRY 1310 - REPORT GIVEN TO HODA BUCHANAN ON MED. PT BEING TRANSFERED TO ROOM 333 ONCE CLEANED. 1500 - PT TRANSFERED TO ROOM 333. PT A&Ox4. ANXIOUS BUT COOPERATIVE WITH CARE. PT REST IN BED UP TO BATHROOM WITH ASSIST. PT DENIES PAIN, SOB AND NAUSEA DURING SHIFT. WOUND TO RLE, DRESSING CHANGED. PT EDUCATED ON NEED TO KEEP TRANS OF I&O'S, PT CONTINUES TO DUMP URINE INTO TOILET AFTER VOIDING. PT DENIES SOB WITH ACTIVITY, PT FOUND TO HAVE OFF O2 WHEN GETTING UP TO BATHROOM, PT ENCOURAGED TO KEEP O2 ON, PT DESTATES TO 80'S WITHOUT IT. PT LEFT ROOM VIA WHEELCHAIR AND TRANSFERED TO ROOM 333
--- NOTE | 2019-01-28 15:05 | NUR ---
PT TRANSFERED. PT TRANSFERED TO 333. PT IN STABLE CONDITION. VSS. PT ORINETED TO ROOM. CALL LIGHT IN REACH.
--- NOTE | 2019-01-28 18:03 | NUR ---
SHIFT SUMMARY NO CHANGES IN ASSESSMENT AT THIS TIME. VSS. PT UP IN ROOM EATING DINNER. CALL LIGHT IN REACH. DENIES NEEDS AT THIS TIME. DRESSING REMAINS CLEAN & INTACT. WILL CONTINUE TO MONITOR UNTIL TURNOVER IS COMPLETE.
--- NOTE | 2019-01-29 03:59 | NUR ---
SHIFT SUMMARY PATIENT HAD NO ACUTE CHANGES OBSERVED THIS SHIFT. AXO X3 AND INDEPENDENT IN THE ROOM. PIV REMAINS INTACT. IV ABX INFUSED. DENIES PAIN, SOB, AND N/V. DRESSING CHANGES TO RIGHT LOWER LEG. C/D/I. ON 2L O2 NC BASELINE. VSS/AFEBRILE. COOPERATIVE WITH CARE. CALL LIGHT IN REACH. BED IN LOWEST POSITION. WILL CONTINUE TO MONITOR UNTIL DAY SHIFT NURSE ASSUMES CARE.
[2019-01-29] MEDS ORDERED: Bumetanide1 MG PO (10:13)
[2019-01-29] MEDS ORDERED: ENTRESTO 24 MG1 EACH PO (10:14)
[2019-01-29] MEDS ORDERED: CEPH500 PO (10:14)
--- NOTE | 2019-01-29 11:01 | NUR ---
1054 NURSE REMOVED IV. NO SS OF INFECTION NOTED. NURSE WENT OVER DISCHARGE PAPERS WITH PATIENT. PATIENT WAS EDUCATED REGARDING NEW MEDS. PATIENTS PCP TO CALL PATIENT AND SCHEDULE FOLLOW UP. PATIENT IS AWARE OF THIS. MEDS FAXED TO PHARMACY OF CHOICE. PATIENT TO DRIVE HERSELF HOME. WILL BE TAKEN DOWN IN WC BY STAFF.
== END 2019-01-29 11:17 | disposition home or self-care (01) | DRG 602 ==
LOC: ER 15:49 → MEDS 20:06 → ER 20:06 → MEDS 20:06 → PCU 21:01 → MEDS 21:29 → PCU 21:29 → MEDS 01-28 14:31 → ENPENDDIS 01-29 10:00 → MEDS 01-29 11:17
PROVIDERS: Internal Medicine; Physician Assistant; ADMIT Internal Medicine
DX: L03.115 Cellulitis of right lower limb (principal); J96.21 Acute and chronic respiratory failure with hypoxia; I50.43 Acute on chronic combined systolic (congestive) and diastolic (congestive) heart failure; J44.9 Chronic obstructive pulmonary disease, unspecified; I48.0 Paroxysmal atrial fibrillation; I11.0 Hypertensive heart disease with heart failure; F17.200 Nicotine dependence, unspecified, uncomplicated; Z99.81 Dependence on supplemental oxygen; Z79.899 Other long term (current) drug therapy
CPT/HCPCS: 36415; 71045; 71260; 80048; 80053; 81003; 83880; 84484; 85025; 85027; 85610; 85730; 93005; 93010; 93970; 94760; 96365; 99285-25; A9270; J0690; J1644; J1650; J7050; Q9967

== ENCOUNTER 2019-07-22 19:04 | Inpatient (IN) | payer MEDICARE, OTHER ==
[~2019-07-22] VITALS: Ht 162.6 cm; Wt 84.3 kg
[~2019-07-22 19:04] MED LIST changes: +Alph-E-Mixed400 UNIT PO; +Bumetanide1 MG PO; +CEPH500 PO; +ENTRESTO 24 MG1 EACH PO; +MAGNESIUM CITR125 MG PO; +MULTI COMPLETE1 EACH PO; +TORSE20 PO; +VITAMIN D350 MCG PO
[2019-07-22 20:15] LABS: BASOPHILS ABSOLUTE AUTO 0.06 K/mm3 (0.00-0.23); BASOPHILS PERCENT AUTO 1 % (0-2); EOSINOPHILS ABSOLUTE AUTO 0.05 K/mm3 (0.00-0.68); EOSINOPHILS PERCENT AUTO 1 % (0-6); Hemoglobin 13.8 g/dL (11.5-16.0); IMMATURE GRAN ABSOLUTE AUTO 0.03 K/mm3 (0.00-0.10); IMMATURE GRAN PERCENT AUTO 0 % (0-1); LYMPHOCYTES ABSOLUTE AUTO 0.74 K/mm3 (0.84-5.20); LYMPHOCYTES PERCENT AUTO 9 % (21-46); MONOCYTES ABSOLUTE AUTO 0.85 K/mm3 (0.16-1.47); MONOCYTES PERCENT AUTO 11 % (4-13); Mean Corpuscular HGB 30.5 pg (26.0-34.0); Mean Corpuscular HGB Conc 30.7 g/dL (31.5-36.5); Mean Corpuscular Volume 99 fL (80-100); Mean Platelet Volume 10.9 fL (9.1-12.4); NEUTROPHILS ABSOLUTE AUTO 6.35 K/mm3 (1.96-9.15); NEUTROPHILS PERCENT AUTO 79 % (41-73); Platelet Count 171 K/mm3 (150-400); RDW Coefficient Variation 15.6 % (11.7-14.2); RDW Standard Deviation 57.1 fL (35.1-46.3); Red Blood Cell Count 4.53 M/mm3 (3.80-5.20); White Blood Cell Count 8.08 K/mm3 (4.00-11.30)
[2019-07-22 20:32] LABS: Alanine Aminotransfer (ALT/SGP 19 U/L (12-78); Albumin, Blood 3.4 g/dL (3.4-5.0); Anion Gap 4 mmol/L (6-16); Aspartate Aminotrans (AST/SGOT 18 U/L (12-37); Blood Urea Nitrogen 17 mg/dL (8-24); Bun/Creatinine Ratio 24.9 (12.0-20.0); CO2, Blood 39 mmol/L (21-32); Calcium, Blood 9.6 mg/dL (8.5-10.1); Chloride, Blood 101 mmol/L (98-108); Creatinine, Blood 0.68 mg/dL (0.40-1.00); Glomerular Filtration Rate >60 (60-); Glucose, Blood 91 mg/dL (70-99); Potassium, Blood 3.6 mmol/L (3.5-5.5); Sodium, Blood 144 mmol/L (136-145)
[2019-07-22 20:36] LABS: Albumin/Globulin Ratio 0.9 (0.8-1.8); Alk Phos 100 U/L (50-136); Bilirubin, Total 1.8 mg/dL (0.1-1.0); Globulin, Blood 3.7 g/dL (2.2-4.0); Total Protein, Blood 7.1 g/dL (6.4-8.2); Troponin I 0.036 ng/mL (0.000-0.040)
[2019-07-22] MEDS ORDERED: FURO80 PO (21:47)
[2019-07-22] MEDS ORDERED: FERSU300 PO (21:52)
[2019-07-23 05:37] LABS: Hematocrit 42.8 % (33.0-51.0); Hemoglobin 13.2 g/dL (11.5-16.0); Mean Corpuscular HGB 31.1 pg (26.0-34.0); Mean Corpuscular HGB Conc 30.8 g/dL (31.5-36.5); Mean Corpuscular Volume 101 fL (80-100); Mean Platelet Volume 11.3 fL (9.1-12.4); Platelet Count 165 K/mm3 (150-400); RDW Coefficient Variation 15.8 % (11.7-14.2); RDW Standard Deviation 58.4 fL (35.1-46.3); Red Blood Cell Count 4.25 M/mm3 (3.80-5.20); White Blood Cell Count 6.69 K/mm3 (4.00-11.30)
[2019-07-23 06:07] LABS: Alanine Aminotransfer (ALT/SGP 16 U/L (12-78); Albumin, Blood 3.2 g/dL (3.4-5.0); Albumin/Globulin Ratio 0.9 (0.8-1.8); Alk Phos 94 U/L (50-136); Anion Gap 2 mmol/L (6-16); Aspartate Aminotrans (AST/SGOT 21 U/L (12-37); Bilirubin, Total 1.5 mg/dL (0.1-1.0); Blood Urea Nitrogen 19 mg/dL (8-24); Bun/Creatinine Ratio 25.6 (12.0-20.0); CO2, Blood 40 mmol/L (21-32); Calcium, Blood 9.5 mg/dL (8.5-10.1); Chloride, Blood 101 mmol/L (98-108); Creatinine, Blood 0.74 mg/dL (0.40-1.00); Globulin, Blood 3.6 g/dL (2.2-4.0); Glomerular Filtration Rate >60 (60-); Glucose, Blood 96 mg/dL (70-99); Sodium, Blood 143 mmol/L (136-145); Total Protein, Blood 6.8 g/dL (6.4-8.2)
[2019-07-23] MEDS ORDERED: CURCUMIN PO (13:05)
[2019-07-23] MEDS ORDERED: K2 PO (13:07)
[2019-07-23] MEDS ORDERED: TRACE MINERALS PO (13:08)
--- NOTE | 2019-07-23 15:25 | NUR ---
SHE HAS BEEN ADMITTED TO PCU 4 FROM THE E.R. SHE IS A&O BUT LIKES TO DO THINGS HER WAY. BED ALARM ON BECAUSE I'M NOT SURE YET IF SHE HAS GOOD JUDGEMENT REGARDING SAFETY. O2 3L. CONTINUOUS BIOX ON. SHE HAS HX OF SLEEP APNEA BUT DOES NOT OWN A CPAP SHE SAYS D/T EXPENSE. SHE DESATS WITH ROOM AMBULATION. HER BROTHER CAME TO VISIT. HE WORRIES ABOUT HER AT HOME AND SAYS SHE DOES NOT TAKE CARE OF HERSELF WELL. THAT DOES APPEAR TO PROBABLY BE THE CASE HER EDEMA AND RED LEGS ARE SIGNIFICANT.
--- NOTE | 2019-07-23 15:58 | NUR ---
Echocardiogram completed.
[2019-07-23 19:22] LABS: International Normalized Ratio 1.11; Prothrombin Time Results 11.8 Sec (9.7-11.5)
--- NOTE | 2019-07-23 19:28 | NUR ---
SHE IS DIURISING SMALL AMTS FREQUENTLY AFTER EVENING BUMEX DOSE. TELFA AND GAUZE DRESSING IS ON HER R CALF AFTER PICTURES TAKEN. BOTH LOWER LEGS QUITE INFLAMMED RED. ECHO DONE. EF UNCHANGED FROM PREVIOUS ECHO. COAGS DRAWN IN PREPARATION FOR THORACENTESIS TOMORROW AND WILL HOLD LOVENOX TOMORROW. SHE REFUSED HER DOSE THIS AM IN THE E.R.O2 3L. SOB WITH ACTIVITY IN THE ROOM.
[2019-07-24 03:56] LABS: BASOPHILS ABSOLUTE AUTO 0.04 K/mm3 (0.00-0.23); BASOPHILS PERCENT AUTO 1 % (0-2); EOSINOPHILS PERCENT AUTO 4 % (0-6); Hematocrit 43.1 % (33.0-51.0); Hemoglobin 13.1 g/dL (11.5-16.0); IMMATURE GRAN ABSOLUTE AUTO 0.01 K/mm3 (0.00-0.10); IMMATURE GRAN PERCENT AUTO 0 % (0-1); LYMPHOCYTES ABSOLUTE AUTO 0.82 K/mm3 (0.84-5.20); LYMPHOCYTES PERCENT AUTO 15 % (21-46); MONOCYTES ABSOLUTE AUTO 0.89 K/mm3 (0.16-1.47); MONOCYTES PERCENT AUTO 16 % (4-13); Mean Corpuscular HGB 30.8 pg (26.0-34.0); Mean Corpuscular HGB Conc 30.4 g/dL (31.5-36.5); Mean Corpuscular Volume 101 fL (80-100); Mean Platelet Volume 11.3 fL (9.1-12.4); NEUTROPHILS ABSOLUTE AUTO 3.63 K/mm3 (1.96-9.15); NEUTROPHILS PERCENT AUTO 65 % (41-73); Platelet Count 169 K/mm3 (150-400); RDW Coefficient Variation 15.6 % (11.7-14.2); RDW Standard Deviation 58.7 fL (35.1-46.3); Red Blood Cell Count 4.25 M/mm3 (3.80-5.20); White Blood Cell Count 5.59 K/mm3 (4.00-11.30)
[2019-07-24 04:11] LABS: Anion Gap 2 mmol/L (6-16); Blood Urea Nitrogen 22 mg/dL (8-24); Bun/Creatinine Ratio 24.9 (12.0-20.0); CO2, Blood 41 mmol/L (21-32); Calcium, Blood 9.4 mg/dL (8.5-10.1); Chloride, Blood 97 mmol/L (98-108); Creatinine, Blood 0.89 mg/dL (0.40-1.00); Glomerular Filtration Rate >60 (60-); Glucose, Blood 71 mg/dL (70-99); Potassium, Blood 3.7 mmol/L (3.5-5.5); Sodium, Blood 140 mmol/L (136-145)
--- NOTE | 2019-07-24 06:43 | NUR ---
EOS: PATIENT WAS UP MUCH OF THE SHIFT. SHE DOSED OCCASIONALLY. SHE DENIES POAIN THIS SHIFT. AND HAS BEEN JUST SIPS AND CHIPS SINCE ABOUT 1230 LAST NIGHT IN ANTICIPATION OF A U/S GUIDED THORACENTESIS. SHE IS AOX4, AND PLEASANT AND COOPERATIVE WITH CARE. DENIES PAIN TONIGHT. BED LOW AND LOCKED AND CALL EBLL WITHIN REACH.
[2019-07-24 11:08] LABS: Automated BF WBC Count 0.203 K/mm3 (0-999); Body Fluid WBC Count 203 /mm3 (0-999)
[2019-07-24 11:21] LABS: Albumin, Body Fluid 1.4 g/dL; Glucose, Body Fluid 108 mg/dL; Lactate Dehydrogenase, Body Fl 53 U/L; Protein, Body Fluid 2.4 g/dL
[2019-07-24 11:34] LABS: RBC Count, Body Fluid 686 /mm3 (0-0)
[2019-07-24 12:00] LABS: Total Cell Count, Body Fluid 100
[2019-07-24 12:01] LABS: Appearance, Body Fluid Clear (Clear); Color, Body Fluid L Yellow (None-Yellow)
[2019-07-24 12:06] LABS: pH, Body Fluid 7.5
--- NOTE | 2019-07-24 13:07 | NUR ---
Patient is sitting up in bed and alert. Patient tells me about her medical history, her family unit complications and her spiritual journey. Patient shares personal issues and gets very tearful and speaks of her fears and guilt. I listen empathically, explore mandaen beliefs, conduct a life review and provided grief/emotional support, spiritual guidance and prayer. Patient responds well and shows signs of catharsis and restored azeb. Patient verbalizes appreciation for the visit. i will continue to remain available to patient and family.
--- NOTE | 2019-07-24 17:40 | NUR ---
PCU DAYSHIFT SUMMARY PATIENT ALERT AND ORIENTED X4 T/O SHIFT. PATIENT ENCOURAGED TO ELEVATE BLE T/O SHIFT DUE TO 4 + PITTING EDEMA AND WEEPING IN WOUND IN RIGHT LEG. PATIET ON HOME DOSE OF OXYGEN AT 3 LPM NC AND CONTINUOUS BIOX IN PLACE. RESP E/U AT REST - PATIENT DOES BECOME SOB WITH EXCERTION - RECOVERS WELL. PATIENT HAD AN ULTRASOUND GUIDED THORENCITIS WITH 1.5 LITERS REMOVED - PATIENT STATES SHE FEELS MUCH BETTER. PATIENT SHOWERED AND DRESSING REPLACE ON RIGHT CALF. PATIENT REMAINS IN AFIB IN THE 80-90 WITH NO CARDIAC EVENTS PER GEOPOLITICS TEACHER. CALL LIGHT W/I REACH. PATIENT STAND BY ASSIST TO BATHROOM.
[2019-07-25 04:15] LABS: BASOPHILS ABSOLUTE AUTO 0.03 K/mm3 (0.00-0.23); BASOPHILS PERCENT AUTO 0 % (0-2); EOSINOPHILS PERCENT AUTO 3 % (0-6); Hemoglobin 13.4 g/dL (11.5-16.0); IMMATURE GRAN ABSOLUTE AUTO 0.02 K/mm3 (0.00-0.10); IMMATURE GRAN PERCENT AUTO 0 % (0-1); LYMPHOCYTES ABSOLUTE AUTO 0.67 K/mm3 (0.84-5.20); LYMPHOCYTES PERCENT AUTO 8 % (21-46); MONOCYTES ABSOLUTE AUTO 1.05 K/mm3 (0.16-1.47); MONOCYTES PERCENT AUTO 13 % (4-13); Mean Corpuscular HGB 30.7 pg (26.0-34.0); Mean Corpuscular HGB Conc 30.5 g/dL (31.5-36.5); Mean Corpuscular Volume 101 fL (80-100); Mean Platelet Volume 11.4 fL (9.1-12.4); NEUTROPHILS ABSOLUTE AUTO 6.02 K/mm3 (1.96-9.15); NEUTROPHILS PERCENT AUTO 75 % (41-73); Platelet Count 174 K/mm3 (150-400); RDW Coefficient Variation 15.4 % (11.7-14.2); RDW Standard Deviation 57.1 fL (35.1-46.3); Red Blood Cell Count 4.37 M/mm3 (3.80-5.20); White Blood Cell Count 7.99 K/mm3 (4.00-11.30)
[2019-07-25 04:39] LABS: Magnesium, Blood 1.9 mg/dL (1.6-2.4)
[2019-07-25 04:44] LABS: Anion Gap 3 mmol/L (6-16); Blood Urea Nitrogen 27 mg/dL (8-24); Bun/Creatinine Ratio 34.9 (12.0-20.0); CO2, Blood 41 mmol/L (21-32); Calcium, Blood 9.3 mg/dL (8.5-10.1); Chloride, Blood 97 mmol/L (98-108); Creatinine, Blood 0.77 mg/dL (0.40-1.00); Glomerular Filtration Rate >60 (60-); Glucose, Blood 94 mg/dL (70-99); Potassium, Blood 3.7 mmol/L (3.5-5.5); Sodium, Blood 141 mmol/L (136-145)
--- NOTE | 2019-07-25 05:11 | NUR ---
SHIFT SUMMARY PT SLEEPING IN ROOM COMFORTABLY AT THIS TIME. NO ACUTE CHANGES IN STATUS T/O NIGHT. PT SLEPT WELL. RESP EVEN UNLABORED ON 3L NC W/ SATS >92%, THIS IS PT BASELINE. PT DENIED ANY SOB OR CP T/O NIGHT. DENIED OTHER NEEDS. FLUID RESTRICTION IN PLACE ON PT. PT VERBILIZES UNDERSTANDING OF FR. CALL LIGHT IS WITHIN REACH OR PT. PT REPORTING DOES NOT WANT BEDSIDE REPORT THIS AM.
--- NOTE | 2019-07-25 05:55 | NUR ---
PT NONCOMPLIENT WITH I/O T/O NIGHT PT WAS INDEPENDENT IN ROOM DURING NIGHT. IT WAS NOTED BY STAFF THIS AM THAT HAT WAS NOT IN TOILET AD PT WAS VOIDING W/O TELLING STAFF AND W/O COLLECTING URINE TO MEASURE. PT WAS EDUCATED ABOUT NEED TO RECORD ACCURATE I/O'S DURING STAY. HAT PLACED IN TOILET AT THIS TIME. PT VERBILIZES UNDERSTANDING.
--- NOTE | 2019-07-25 15:30 | NUR ---
TRANSFER TO MED ROOM 306 PATIENT REMAINED ALERT AND ORIENTED TO SELF, LOCATION AND SITUATION. PATIENT WORKED WITH PT THIS SHIFT AND AMBULATED APPROX 300 YARDS ON HER HOME DOSE OF OXYGEN AT 3 LPM. PATIENT HAS 3-4 + PITTING EDEMA WITH WEEPING CELLULITIS ON RIGHT CALF. PATIENT AFIB AT BASELINE - NO CARDIAC EVENTS NOTED THIS SHIFT. PATIENT REPORTS THAT SHE HAS BEEN FEELING BETTER. REPORT GIVEN TO MEDICAL FLOOR HODA BARROS. PATIENT DENIES ANY PAIN T/O SHIFT. LEFT UNIT VIA WHEELCHAIR TO MEDICAL FLOOR IN NO ACUTE DISTRESS.
--- NOTE | 2019-07-25 16:55 | NUR ---
shift summary patient is pleasant, alert and oriented. independent in the room no acute concerns at this time. she denies pain. bilateral leg weeping related to edema. she does have 4+ edema.
--- NOTE | 2019-07-26 07:51 | NUR ---
SHIFT SUMMARY PT BANDGE CHANGED ON LEG. PT SLEPT T/O SHIFT. PT VOIDED AND HAD A BM LAST NIGHT. PT HAD NO ISSUES NOTED. PT BLE AND THIGHS STILL SWOLLEN. PT TOLERATES ELEVATING LEGS WHILE IN BED. NO OTHER ISSUES NOTED. CALL LIGHT IN REACH.
--- NOTE | 2019-07-26 14:34 | NUR ---
ALERT. ORIENTED. INDEPENDENT IN ROOM. LUNGS DIM RT LOWER; OTHERWISE, CLEAR T/O. REFUSES LOVENOX EVEN AFTER RN EXPLAINS WHY SHE IS GETTING IT. REVIEW FLUID RESTRICTION WITH PATIENT WHO THOUGHT IT JUST MEANT "WATER RESTRICTION." COOPERATIVE. PLEASANT. WCTM.
--- NOTE | 2019-07-26 18:49 | NUR ---
AMBULATORY IN HALLWAY WITH WALKER AND OXYGEN. STEADY GAIT. FEET GET VERY DARK PURPLE WHEN NOT ELEVATED. DOES HAVE EXERTIONAL DYSPNEA. NO ACUTE CHANGES.
--- NOTE | 2019-07-27 04:30 | NUR ---
SHIFT SUMMARY PT REPORTED FEELING TIRED THIS SHIFT. PT STATES SHE HAS FAMILY AND FRIENDS VISIT AND SHE WALKED THE UNIT. PT LEGS REMAIN SWOLLEN. PT HAS BEEN VOIDING AND A NOTED EPISODE OF LOOSE STOOL. PT HAS BEEN ADHEREING TO FLUID RESTRICTION WELL. PT CURRENTLY SLEEPING AND BREATHING EASY. CALL LIGHT IN REACH.
[2019-07-27 05:08] LABS: BASOPHILS ABSOLUTE AUTO 0.04 K/mm3 (0.00-0.23); BASOPHILS PERCENT AUTO 1 % (0-2); EOSINOPHILS PERCENT AUTO 3 % (0-6); Hematocrit 42.2 % (33.0-51.0); Hemoglobin 12.9 g/dL (11.5-16.0); IMMATURE GRAN ABSOLUTE AUTO 0.02 K/mm3 (0.00-0.10); IMMATURE GRAN PERCENT AUTO 0 % (0-1); LYMPHOCYTES ABSOLUTE AUTO 0.59 K/mm3 (0.84-5.20); LYMPHOCYTES PERCENT AUTO 8 % (21-46); MONOCYTES ABSOLUTE AUTO 1.28 K/mm3 (0.16-1.47); MONOCYTES PERCENT AUTO 18 % (4-13); Mean Corpuscular HGB 30.9 pg (26.0-34.0); Mean Corpuscular HGB Conc 30.6 g/dL (31.5-36.5); Mean Corpuscular Volume 101 fL (80-100); Mean Platelet Volume 11.3 fL (9.1-12.4); NEUTROPHILS ABSOLUTE AUTO 5.03 K/mm3 (1.96-9.15); NEUTROPHILS PERCENT AUTO 70 % (41-73); Platelet Count 149 K/mm3 (150-400); RDW Coefficient Variation 15.6 % (11.7-14.2); Red Blood Cell Count 4.18 M/mm3 (3.80-5.20); White Blood Cell Count 7.16 K/mm3 (4.00-11.30)
[2019-07-27 05:38] LABS: Alanine Aminotransfer (ALT/SGP 12 U/L (12-78); Albumin, Blood 2.9 g/dL (3.4-5.0); Albumin/Globulin Ratio 0.8 (0.8-1.8); Alk Phos 110 U/L (50-136); Anion Gap 2 mmol/L (6-16); Aspartate Aminotrans (AST/SGOT 19 U/L (12-37); Bilirubin, Total 1.1 mg/dL (0.1-1.0); Blood Urea Nitrogen 27 mg/dL (8-24); Bun/Creatinine Ratio 40.5 (12.0-20.0); CO2, Blood 42 mmol/L (21-32); Calcium, Blood 8.8 mg/dL (8.5-10.1); Chloride, Blood 96 mmol/L (98-108); Creatinine, Blood 0.67 mg/dL (0.40-1.00); Globulin, Blood 3.6 g/dL (2.2-4.0); Glomerular Filtration Rate >60 (60-); Glucose, Blood 106 mg/dL (70-99); Potassium, Blood 3.5 mmol/L (3.5-5.5); Sodium, Blood 140 mmol/L (136-145); Total Protein, Blood 6.5 g/dL (6.4-8.2)
--- NOTE | 2019-07-27 14:13 | NUR ---
PT GAVE PERMISSION FOR CARE ON 07/27/19 FOR TOMORROW 07/28/19.
--- NOTE | 2019-07-27 17:42 | NUR ---
Shift Summary A/Ox4, received report from night RN that patient was obtunded in the morning upon waking up, POC blood sugar 102. This RN informed Dr. Natty MD aware. Patient has been oriented and independent in room most of the day. During the afternoon when family visited, pt exhibited slight clouding of consciousness and was drowsy. To note, patient was sleeping for approximately 30 minutes prior to family's visit. Patient responded to verbal and physical stimuli stating "I'm cold" and eventually woken up to visit with family. When this occurred, patient was slow to respond verbally and unable to follow instructions appropriately. Denies pain, SOB. No other concerns at this time. Pt has had a good appetite and continues to adhere to fluid restrictions.
[2019-07-28 04:53] LABS: BASOPHILS ABSOLUTE AUTO 0.05 K/mm3 (0.00-0.23); BASOPHILS PERCENT AUTO 1 % (0-2); EOSINOPHILS ABSOLUTE AUTO 0.16 K/mm3 (0.00-0.68); EOSINOPHILS PERCENT AUTO 2 % (0-6); Hematocrit 42.1 % (33.0-51.0); Hemoglobin 12.9 g/dL (11.5-16.0); IMMATURE GRAN ABSOLUTE AUTO 0.01 K/mm3 (0.00-0.10); IMMATURE GRAN PERCENT AUTO 0 % (0-1); LYMPHOCYTES ABSOLUTE AUTO 0.68 K/mm3 (0.84-5.20); LYMPHOCYTES PERCENT AUTO 9 % (21-46); MONOCYTES ABSOLUTE AUTO 1.24 K/mm3 (0.16-1.47); MONOCYTES PERCENT AUTO 16 % (4-13); Mean Corpuscular HGB 30.7 pg (26.0-34.0); Mean Corpuscular HGB Conc 30.6 g/dL (31.5-36.5); Mean Corpuscular Volume 100 fL (80-100); Mean Platelet Volume 11.6 fL (9.1-12.4); NEUTROPHILS ABSOLUTE AUTO 5.61 K/mm3 (1.96-9.15); NEUTROPHILS PERCENT AUTO 72 % (41-73); Platelet Count 180 K/mm3 (150-400); RDW Coefficient Variation 15.2 % (11.7-14.2); RDW Standard Deviation 56.4 fL (35.1-46.3); White Blood Cell Count 7.75 K/mm3 (4.00-11.30)
[2019-07-28 05:15] LABS: Alanine Aminotransfer (ALT/SGP 13 U/L (12-78); Albumin, Blood 2.9 g/dL (3.4-5.0); Albumin/Globulin Ratio 0.8 (0.8-1.8); Alk Phos 119 U/L (50-136); Anion Gap 4 mmol/L (6-16); Aspartate Aminotrans (AST/SGOT 11 U/L (12-37); Bilirubin, Total 0.9 mg/dL (0.1-1.0); Blood Urea Nitrogen 31 mg/dL (8-24); Bun/Creatinine Ratio 34.5 (12.0-20.0); CO2, Blood 41 mmol/L (21-32); Calcium, Blood 9.6 mg/dL (8.5-10.1); Chloride, Blood 96 mmol/L (98-108); Globulin, Blood 3.8 g/dL (2.2-4.0); Glomerular Filtration Rate >60 (60-); Glucose, Blood 102 mg/dL (70-99); Potassium, Blood 3.6 mmol/L (3.5-5.5); Sodium, Blood 141 mmol/L (136-145); Total Protein, Blood 6.7 g/dL (6.4-8.2)
--- NOTE | 2019-07-28 08:38 | NUR ---
AMS- UPON AM ASSESSMENT PT DID NOT RESPOND TO VERBAL STIMULI, PT MOANED SLIGHTLY TO TOUCH BUT DID NOT OPEN EYES. PER NETWORK PRICING CONSULTANT WHO WAS WITH PT YESTERDAY PT WAS A/O AND INDEP TO BATHROOM AND THIS IS A CHANGE IN PT. LS CLEAR, DIMINISHED IN THE BASES. ON 3L N/C, RESP E/U. PT ABLE TO SQUEEZE SLIGHTLY WITH HANDS BUT NO OTHER RESPONSE. SPOKE WITH DR TURK WHO ORDERED AN ABG AT THIS TIME. WILL CONT TO MONITOR.
[2019-07-28 09:02] LABS: PCO2 Arterial 86 mmHg (35-45); PO2 Arterial 62 mmHg (80-100); pH Blood Arterial 7.31 (7.35-7.45)
--- NOTE | 2019-07-28 09:12 | NUR ---
DR TURK IN TO SEE PT, PT NOW AWAKE AND EATING BREAKFAST. ABG RESULTS OF CRITICAL C02 OF 86, PH OF 7.31, P02 62, BICARB 35.8 AND BASE EXCESS OF 16.3. DR TURK NOTIFIED AND ORDERS RECEIVED TO PLACE PT ON BIPAP IF TOLERATES.
--- NOTE | 2019-07-28 10:26 | NUR ---
PT ONLY ABLE TO TOLERATE APROXIMATELY 20MIN OF BIPAP. PT REFUSING TO PLACE BACK ON. PT AT 74% ON RA WHEN ARRIVED IN ROOM. PT PLACED BACK ON 3L N/C, TOOK APROX 4 MIN TO COME BACK TO 90%. PT EDUCATED ON NEED FOR BIPAP BUT CONT TO REFUSE. PT ALSO REFUSED METOPROLOL. DR TURK NOTIFIED, PER DR TURK CONSULT PULMONOLOGY AND PALLIATIVE CARE.
--- NOTE | 2019-07-28 16:46 | NUR ---
SHIFT SUMMARY- PT LETHARGIC UPON AM ASSESSMENT, WOULD MOAN BUT WOULD NOT OPEN EYES OR VERBALLY RESPOND. ABG COMPLETED WITH A CRITICAL C02 OF 86. PT ONLY ABLE TO TOLERATE APROX 20 MIN OF BIPAP AND IS NOW REFUSING. PT DID AWAKE AND BECAME A/O BUT STILL FORGETFUL AND SLOW AT TIMES BUT ABLE TO HOLD CONVERSATION. LS CLEAR, DIMINISHED IN THE BASES, ON 3L N/C WHICH IS HER BASELINE. PULMONOLOGY CONSULTED. PT REMAINS WITH 2+ BLE EDEMA. BNP OF 1810, BUMEX INCREASED TO 4MG IV BIDD. PT SBA INTO BATHROOM. NO OTHER ACUTE CHANGES THIS SHIFT. WILL CONT TO MONITOR.
[2019-07-28 17:06] LABS: Bicarbonate Venous 37.1 mmol/L (24.0-30.0); PCO2 Venous 85.4 mmHg (38-42); PO2 Venous 43.6 mmHg (38-42); pH Blood Venous 7.32 (7.34-7.37)
[2019-07-28 17:07] LABS: Base Excess Venous 17.9 mmol/L
--- NOTE | 2019-07-28 19:29 | NUR ---
Initial Visit: Pt admitted for CHF. She was also found to have a large pleural effusion that required thoracentesis. Pt has a past medical history of chronic leg edema, a-fib, COPD, hypertension, chronic hypoxic respiratory failure. She has home O2 at 3 liters baseline. She is not on anticoagulation for her a-fib. She is non-compliant with CPAP/Bipap and medications, per notes. Pt is alert, oriented, pleasant. She is up and ambulating in the room to the bathroom. Assisted to sitting down on the bed and adjusting her equipment. She denies pain at this time, reports that her shortness of breath is improved since she had the thoracentesis. She denies anxiety, but states that she is having some fatigue. She has eaten her dinner, does not complain of a poor appetite, no headaches, no dizziness. Pt reports performing all ADLs at home. She states that she is able to live independently very successfully. Pt quit smoking 2 months ago. Therapeutic conversation with pt. She admits to "fibbing" to doctors in the past, especially if her aunt is in the room with her and she doesn't want her to know anything about her health. She states that she researches all of her diagnoses and she has put herself on herbal remedies for her chronic conditions. She states that she is declining some of her medications because she isn't supposed to take the herbal stuff and the medications together. She believes her home remedies to be assisting in keeping her healthy and improve her quality of life. Pt enjoys talking. She confirms Full code status for now. She would benefit from continuing education on her chronic illnesses, especially how each one effects the other. Discussed impact of diet and fluid restriction on heart failure, using CPAP or bipap to improve breathing status. Will remain available.
--- NOTE | 2019-07-29 00:05 | NUR ---
CARDIAC: HS LOPRESSOR WAS HELD DUE TO HR IN THE 50. IT IS NOTED THAT PATIENT HAD REFUSED HER 0900 DOSE. JOSE BROOKE NP IS NOTIFIED OF THIS INFORMATION. NO NEW ORDERS.
--- NOTE | 2019-07-29 02:37 | NUR ---
SHIFT SUMMARY: PATIENT IS ALERT AND ORIENTED TO SELF WITH CONFUSION AT TIMES. PATIENT IS VERY TIRED AND FALLS ASLEEP WHILE TALKING TO WIND POWER PROJECT MANAGER. HR IS BRADYCARDIC AT REST. 02 SAT IS BETWEEN 80-95% AT REST. PATIENT DESATS TO 70'S WHEN UP TO THE BATHROOM, 02 IS AT 3L ON NC. LOPRESSOR WAS HELD AT HS DUE TO BRADYCARDIA AND PATIENT REFUSED HER 0900 DOSE, SO NO LOPRESSOR WAS GIVEN, JOSE HARTMAN LENS EDGE GRINDER MACHINE WAS NOTIFIED OF LOPRESSOR BEING HELD. BED ALARM IS ON FOR SAFETY.
[2019-07-29 04:43] LABS: BASOPHILS ABSOLUTE AUTO 0.05 K/mm3 (0.00-0.23); BASOPHILS PERCENT AUTO 1 % (0-2); EOSINOPHILS ABSOLUTE AUTO 0.17 K/mm3 (0.00-0.68); EOSINOPHILS PERCENT AUTO 3 % (0-6); Hemoglobin 13.1 g/dL (11.5-16.0); IMMATURE GRAN ABSOLUTE AUTO 0.02 K/mm3 (0.00-0.10); IMMATURE GRAN PERCENT AUTO 0 % (0-1); LYMPHOCYTES ABSOLUTE AUTO 0.71 K/mm3 (0.84-5.20); LYMPHOCYTES PERCENT AUTO 12 % (21-46); MONOCYTES ABSOLUTE AUTO 1.22 K/mm3 (0.16-1.47); MONOCYTES PERCENT AUTO 20 % (4-13); Mean Corpuscular HGB 30.8 pg (26.0-34.0); Mean Corpuscular HGB Conc 30.5 g/dL (31.5-36.5); Mean Corpuscular Volume 101 fL (80-100); Mean Platelet Volume 11.1 fL (9.1-12.4); NEUTROPHILS ABSOLUTE AUTO 4.02 K/mm3 (1.96-9.15); NEUTROPHILS PERCENT AUTO 65 % (41-73); Platelet Count 169 K/mm3 (150-400); RDW Coefficient Variation 15.1 % (11.7-14.2); RDW Standard Deviation 55.8 fL (35.1-46.3); Red Blood Cell Count 4.25 M/mm3 (3.80-5.20); White Blood Cell Count 6.19 K/mm3 (4.00-11.30)
[2019-07-29 04:51] LABS: Base Excess Venous 18.3 mmol/L; Bicarbonate Venous 38.8 mmol/L (24.0-30.0); PCO2 Venous 70.8 mmHg (38-42); PO2 Venous 87.8 mmHg (38-42); pH Blood Venous 7.39 (7.34-7.37)
[2019-07-29 05:00] LABS: Anion Gap 0 mmol/L (6-16); Blood Urea Nitrogen 27 mg/dL (8-24); Bun/Creatinine Ratio 36.5 (12.0-20.0); CO2, Blood 43 mmol/L (21-32); Calcium, Blood 9.3 mg/dL (8.5-10.1); Chloride, Blood 97 mmol/L (98-108); Creatinine, Blood 0.74 mg/dL (0.40-1.00); Glomerular Filtration Rate >60 (60-); Glucose, Blood 98 mg/dL (70-99); Potassium, Blood 3.4 mmol/L (3.5-5.5); Sodium, Blood 140 mmol/L (136-145)
--- NOTE | 2019-07-29 15:53 | NUR ---
SHIFT SUMMARY THE PATIENT HAD AN UNEVENTFUL SHIFT. DENIES PAIN AND DISCOMFORT. REFUSED 30meq OF THE SCHEDULED 50meq OF POTASSIUM THIS MORNING AND WOULD NOT TAKE HER METOPROLOL OR LOVENOX STATING SHE DID NOT NEED THEM. THE PATIENT AMBULATES INDEPENDENTLY IN HER ROOM, O2 SATS SEEMS TO BE FINE WHEN SHE IS NOT ACTIVE, BUT DROP WITH ANY ACTIVITY. NO CHANGES NOT REPORT OF AT THIS TIME. WILL CONTINUE TO MONITOR AND PROVIDE CARE NEEDED.
--- NOTE | 2019-07-30 04:51 | NUR ---
SHIFT SUMMARY: PATIENT A&OX3, DOSE NOT KNOW DATE AND FORGETFUL AT TIMES. PATIENT IS FOUND BLOWING HER NOSE WITH 02 OFF AND SATURATION AT 61% 3 L NC IS PLACED AND IT TAKES 10 MINUTES FOR SAT TO REACH 88% ON 3L NC PATIENT REPORTS NASAL DRYNESS, HUMIDIFICATION IS ADDED. WHILE SLEEPING PATIENT HAS PERIODS OF APNEA, SHE DOSE HAVE A HISTORY OF [place] NON COMPLIANT WITH CPAP AT HOME. SHE IS ALSO REFUSING CPAP OR BPAP HERE. CONTINOUS PULSE OX IS IN PLACE. ORAL LOPRESSOR WAS HELD DUE TO PULSE BEING 57, PATIENT WAS ALSO REFUSING THIS MEDICATION.
[2019-07-30] MEDS ORDERED: METO25 PO (09:05)
--- NOTE | 2019-07-30 12:41 | NUR ---
DISCHARGE INSTRUCTIONS GIVEN TO PATIENT VERBALLY AND IN WRITTEN FORM. PRINTED EDUCATIONAL MATERIAL ALSO PROVIDED FOR PATIENT. IV REMOVED. ALL QUESTIONED ANSWERED. PATIENT HAS OWN PORTABLE OXYGEN TANK WITH HER; SHE HAS HER CARE HERE IN PARKING LOT AND PLANS TO DRIVE HERSELF HOME AFTER EATING LUNCH. WILL ESCORT HER OUT OF THE HOSPITAL WHEN THE PATIENT IS READY.
--- NOTE | 2019-07-30 14:15 | NUR ---
PATIENT DISCHARGED HOME AT 1400. I ESCORTED PATIENT TO HER CAR VIA W/C. PATIENT HAS PERSONAL PORTABLE O2 AND WAS WEARING O2 UPON DISCAHRGE.
== END 2019-07-30 14:01 | disposition home health service (06) | DRG 291 ==
LOC: ER 19:04 → ERHOLD 21:35 → MEDS 21:35 → PCU 21:35 → MEDS 07-25 15:45 → ENPENDDIS 07-30 10:00 → MEDS 07-30 14:01
PROVIDERS: Hospitalist; Internal Medicine; Internal Medicine Critical Care Medicine; Physician Assistant; ADMIT Internal Medicine
PROC: 0W993ZX Drainage of Right Pleural Cavity, Percutaneous Approach, Diagnostic (ICD-10-PCS; principal; 2019-07-24)
DX: I11.0 Hypertensive heart disease with heart failure (principal); J96.21 Acute and chronic respiratory failure with hypoxia; J96.22 Acute and chronic respiratory failure with hypercapnia; E87.2 Acidosis; I48.20 Chronic atrial fibrillation, unspecified; J90 Pleural effusion, not elsewhere classified; I50.43 Acute on chronic combined systolic (congestive) and diastolic (congestive) heart failure; J44.9 Chronic obstructive pulmonary disease, unspecified; R26.89 Other abnormalities of gait and mobility; Z87.891 Personal history of nicotine dependence; G47.33 Obstructive sleep apnea (adult) (pediatric); Z99.81 Dependence on supplemental oxygen
CPT/HCPCS: 32555; 36415; 36600; 71045; 71046; 80048; 80053; 82042; 82803; 82945; 82947; 83615; 83735; 83880; 83986; 84100; 84157; 84484; 85025; 85027; 85610; 85730; 87070; 87205; 88108; 88305; 89051; 93005; 93010; 93306; 94660; 94762; 96374; 96375; 97116; 97162; 97165; 97530; 97535; 99285-25; A9270-GY; J1120; J1160; J1650; J1940; J7050

== ENCOUNTER 2020-03-19 19:50 | Inpatient (IN) | payer MEDICARE, OTHER ==
[~2020-03-19] VITALS: Ht 162.6 cm; Wt 91.0 kg
[~2020-03-19 19:50] MED LIST changes: +CURCUMIN PO; +FERSU300 PO; +K2 PO; -POTCHL10ER PO; +TRACE MINERALS PO
[2020-03-19 21:21] LABS: BASOPHILS ABSOLUTE AUTO 0.04 K/mm3 (0.00-0.23); BASOPHILS PERCENT AUTO 1 % (0-2); EOSINOPHILS ABSOLUTE AUTO 0.05 K/mm3 (0.00-0.68); EOSINOPHILS PERCENT AUTO 1 % (0-6); Hematocrit 43.3 % (33.0-51.0); Hemoglobin 13.5 g/dL (11.5-16.0); IMMATURE GRAN ABSOLUTE AUTO 0.03 K/mm3 (0.00-0.10); IMMATURE GRAN PERCENT AUTO 0 % (0-1); LYMPHOCYTES ABSOLUTE AUTO 0.79 K/mm3 (0.84-5.20); LYMPHOCYTES PERCENT AUTO 10 % (21-46); MONOCYTES ABSOLUTE AUTO 1.18 K/mm3 (0.16-1.47); MONOCYTES PERCENT AUTO 16 % (4-13); Mean Corpuscular HGB 31.5 pg (26.0-34.0); Mean Corpuscular HGB Conc 31.2 g/dL (31.5-36.5); Mean Corpuscular Volume 101 fL (80-100); Mean Platelet Volume 11.3 fL (9.1-12.4); NEUTROPHILS ABSOLUTE AUTO 5.49 K/mm3 (1.96-9.15); NEUTROPHILS PERCENT AUTO 72 % (41-73); Platelet Count 161 K/mm3 (150-400); RDW Coefficient Variation 15.9 % (11.7-14.2); RDW Standard Deviation 59.8 fL (35.1-46.3); Red Blood Cell Count 4.29 M/mm3 (3.80-5.20); White Blood Cell Count 7.58 K/mm3 (4.00-11.30)
[2020-03-19 21:42] LABS: Alanine Aminotransfer (ALT/SGP 17 U/L (12-78); Albumin, Blood 3.4 g/dL (3.4-5.0); Albumin/Globulin Ratio 0.9 (0.8-1.8); Alk Phos 135 U/L (50-136); Anion Gap 1 mmol/L (6-16); Aspartate Aminotrans (AST/SGOT 23 U/L (12-37); Blood Urea Nitrogen 16 mg/dL (8-24); Bun/Creatinine Ratio 23.8 (12.0-20.0); CO2, Blood 42 mmol/L (21-32); Calcium, Blood 9.6 mg/dL (8.5-10.1); Chloride, Blood 96 mmol/L (98-108); Creatinine, Blood 0.67 mg/dL (0.40-1.00); Globulin, Blood 3.6 g/dL (2.2-4.0); Glomerular Filtration Rate >60 (60-); Glucose, Blood 88 mg/dL (70-99); Potassium, Blood 3.9 mmol/L (3.5-5.5); Sodium, Blood 139 mmol/L (136-145); Troponin I 0.043 ng/mL (0.000-0.040)
[2020-03-19] MEDS ORDERED: POTCHL10ER PO (21:50)
[2020-03-19] MEDS ORDERED: FURO80 PO (21:50)
[2020-03-20 04:02] LABS: Anion Gap 0 mmol/L (6-16); Blood Urea Nitrogen 17 mg/dL (8-24); Bun/Creatinine Ratio 22.1 (12.0-20.0); CO2, Blood 43 mmol/L (21-32); Calcium, Blood 9.5 mg/dL (8.5-10.1); Chloride, Blood 98 mmol/L (98-108); Creatinine, Blood 0.77 mg/dL (0.40-1.00); Glomerular Filtration Rate >60 (60-); Glucose, Blood 105 mg/dL (70-99); Sodium, Blood 141 mmol/L (136-145)
--- NOTE | 2020-03-20 05:40 | NUR ---
SHIFT SUMMARY PT SLEEPING IN ROOM COMFORTABLY AT THIS TIME. NO ACUTE CHANGES IN STATUS T/O NIGHT. PT SLEPT WELL AFTER ARRIVAL. RESP EVEN UNLABORED ON 2.5L NC. PT TO BE DIURESED D/T FLUID OVERLOAD. REPORTED CP GONE FROM ED. BLE ELEVATED ON PILLOWS FOR COMFORT. PT ABLE TO MOVE TO BSC AT BEDSIDE W/O ASSIST. DENEID OTHER NEEDS. CALL LIGHT IN REACH.
--- NOTE | 2020-03-20 08:12 | NUR ---
PROVIDER ASSESSMENT DR. BRITTON AND DR. HARKINS TO BEDSIDE FOR ASSESSMENT. SPOKE WITH DR. HARKINS REGARDING LISINOPRIL ORDER FROM DR. COLEMAN. PER DR. HARKINS, HOLD MED AT THIS TIME AND SHE WILL REASSESS FOR NEED AND KEEP OR DISCONTINUE.
--- NOTE | 2020-03-20 09:34 | NUR ---
CARE ASSUMED REPORT RECEIVED, CARE ASSUMED AT 0700 FROM HODA BEST. PT ASLEEP ON INITIAL ROUNDS. WHEN ENTERED ROOM FOR ASSESSMENT, PT UP IN ROOM WITH OXYGEN OFF. SPO2 IN THE 70'S. LIPS, ARMS AND LEGS BLUE. PT BREATHING RAPIDLY. PLACED ON NASAL CANNULA. PT TOOK APPROX 5 MINUTES TO RECOVER. PT TALKATIVE, INTERUPTS STAFF REPEATEDLY WHEN ATTEMPTING TO EDUCATE ON VARIOUS TOPICS. PT REPORTS, "I GIVE MYSELF BREAKS FROM OXYGEN WHEN I GET UP TO GO TO THE BATHROOM." PT ALSO SAYS, "I AM ALWAYS BLUE. PROVIDER TO BEDSIDE FOR ASSESSMENT. SEE EMAR, PREVIOUS NOTES AND ASSESSMENTS FOR UPDATES ON PLAN. VITALS STABLE AT THIS TIME. PT PLACED ON CONTINUOUS PULSE OX FOR CLOSER SPO2 MONITORING AND EDUCATED. PT ALSO ENCOURAGED TO CALL STAFF FOR USE OF BATHROOM. PT ASSIST TO GET BACK INTO BED, GIVEN EXTRA BLANKETS PER REQUEST, BED ALARM TURNED ON AND CALL LIGHT IN REACH. PT LEFT WITH STUFF FOR MORNING ADL'S AT BEDSIDE. BRUSHING HER TEETH UPON EXITING ROOM. KEEPING PT NPO UNTIL MD DETERMINES IF PT WILL BE HAVING A THORACENTESIS TODAY. PT AGREEABLE.
[2020-03-20 12:13] LABS: Total Protein, Blood 6.5 g/dL (6.4-8.2)
[2020-03-20 12:21] LABS: International Normalized Ratio 1.17; Prothrombin Time Results 12.4 Sec (9.7-11.5)
--- NOTE | 2020-03-20 13:06 | NUR ---
NOTIFIED BY RADIOLOGY THAT PT'S THORACENTESIS WILL BE SCHEDULED FOR TOMORROW. PT CHANGED FROM NPO, ORDER PLACED FOR NPO AFTER MIDNIGHT.
--- NOTE | 2020-03-20 18:18 | NUR ---
SUMMARY SINCE PREVIOUS NOTE, PT HAS RESTED INTERMITTENTLY, TALKED WITH FAMILY ON PHONE, AND CALLED APPROPRIATELY FOR NEEDS. STAND BY ASSIST TO BEDSIDE COMMODE PT SOMEWHAT WEAK AND VERY SHORT OF BREATH. PT HAS REMAINED ON 4 LPM NASAL CANNULA. CONTINUES TO BE IN AFIB. BP STABLE. MODERATE URINE OUTPUT. SEE I/O FLOWSHEET. THORACENTESIS PLANNED FOR TOMORROW, NPO AFTER MIDNIGHT.
--- NOTE | 2020-03-21 05:42 | NUR ---
PT RESTED COMFORTABLY THROUGH NIGHT AO TELE A FIB 4LNC BED ALARM STANDY BY ASSIST TO BSC VOID X4 NO BM NO C/O PAIN NPO SINCE MIDNIGHT FOR THORACENTESIS TODAY VSS CALL LIGHT WITHIN REACH, BED IN LOWEST POSITION. WILL CONTINUE TO MONITOR.
--- NOTE | 2020-03-21 11:29 | NUR ---
UPDATE PT RETURNED FROM IMAGING POST THORACENTESIS. VS STABLE. O2 SATS REMAIN ABOVE 90% ON 3L NC. BP STABLE. HR AFIB 90'S AT THIS TIME. PER REPORT 1.5L REMOVED FROM RIGHT SIDE. PT TO WORK WITH PT AT THIS TIME. WILL CONTINUE TO MONITOR CLOSELY.
[2020-03-21 11:46] LABS: Automated BF WBC Count 0.134 K/mm3 (0-999); Body Fluid WBC Count 134 /mm3 (0-999)
[2020-03-21 11:51] LABS: pH, Body Fluid 7.9
[2020-03-21 11:52] LABS: Albumin, Body Fluid 1.3 g/dL; Lactate Dehydrogenase, Body Fl 60 U/L; Triglycerides, Body Fluid 11 mg/dL
[2020-03-21 12:18] LABS: RBC Count, Body Fluid 366 /mm3 (0-0)
[2020-03-21 12:21] LABS: Appearance, Body Fluid Clear (Clear); Color, Body Fluid L Yellow (None-Yellow); Total Cell Count, Body Fluid 100
--- NOTE | 2020-03-21 17:27 | NUR ---
SHIFT SUMMARY PT ALERT AND ORIENED. PT ANSWERING QUESTIONS APPROPRIATELY AT THIS TIME, BUT WILL OCCASIONALLY THINK SHE IS AT HOME AND NEED REDIRECTING. O2 SATS REMAIN ABOVE 90% ON 3L NC. PT REPORTS HAVING AN EASIER TIME BREATHING AFTER THORACENTESIS. HR AFIB IN THE 80'S AT THIS TIME. PT DENIES ANY PAIN. PT ABLE TO AMBULATE WITH SBA TO BSC NEEDED. PT ONLY VOIDING ABOUT 100ML AT A TIME. STATUS CHANGED TO MEDICAL. REPORT GIVEN TO MEDICAL FLOOR RN. PT TO BE TAKEN UP.
--- NOTE | 2020-03-21 23:41 | NUR ---
AWAKE AT INTERVALS. ASSISTED TO BATHROOM A FEW TIMES. SEEMS TO DESAT WHEN UP AND ABOUT, ORDER FOR CONTINUOUS PULSE OX OBTAINED. SATING IN THE 90'S AT THIS TIME. IN BED. WATCHING TV. DAUGHTER CALLED EARLIER CONCERNED ABOUT PT O2 SATS. CALL LIGHT IN REACH
--- NOTE | 2020-03-22 05:42 | NUR ---
SHIFT SUMMARY AWAKE AT INTERVALS TO GO TO THE BATHROOM. CONTINUOUS PULSE OX ON THROUGH SHIFT. OCCASIONALLY SATS DROPPED INTO THE MID 60'S, AT SHICH TIMES SHE WAS ENCOURAGED TO TAKE DEEP BREATHS AND SATS WENT BACK INTO THE 90'S. CALL LIGHT IN REACH. HOB ELEVATED FOR COMFORT.
[2020-03-22 10:30] LABS: PO2 Arterial 66.8 mmHg (80-100)
[2020-03-22 10:32] LABS: PCO2 Arterial 96.8 mmHg (35-45); pH Blood Arterial 7.27 (7.35-7.45)
[2020-03-22 11:45] LABS: Anion Gap 2 mmol/L (6-16); Blood Urea Nitrogen 30 mg/dL (8-24); Bun/Creatinine Ratio 33.8 (12.0-20.0); CO2, Blood 43 mmol/L (21-32); Calcium, Blood 9.3 mg/dL (8.5-10.1); Chloride, Blood 99 mmol/L (98-108); Creatinine, Blood 0.89 mg/dL (0.40-1.00); Glomerular Filtration Rate >60 (60-); Glucose, Blood 120 mg/dL (70-99); Sodium, Blood 144 mmol/L (136-145)
--- NOTE | 2020-03-22 17:20 | NUR ---
SUMMARY PT RESTING IN BED, WAKES UP WHEN SPOKEN TO, PT HAS BEEN PLEASANT AND COOPERATIVE WITH CARE, PT LETHARGIC IN THE AM, ABG OBTAINED, PT STARTED ON BIPAP PER RESP THERAPY, PT OFF AND ON THE BIPAP T/O THE DAY, PT WAS ABLE TO WORK WITH PT/OT TODAY, PLAN IS TO DC TO SNF IN A FEW DAYS, PT AGREEABLE, PT DESATS QUICKLY WITH ACTIVITY, TAKES SOME TIME TO RECOVER, NO ACUTE CHANGES, WILL CONT TO MONITOR
--- NOTE | 2020-03-22 23:55 | NUR ---
Pt on continuous pulse ox. Was dropping into the 80's at HS. Noted pt had O2 cannula out of nose. Was awakened and Nasal Cannula placed back in nostrils. Instructed to keep NC (nasal cannula) in nostrils. RT was notified and pt was placed on her BiPap. Currently resting quietly with O2 sats in med 90's. Call light in reach
--- NOTE | 2020-03-23 03:34 | NUR ---
WAS NOTED TO HAVE DECREASED O2 SATS EARLIER, BIPAP CHECKED, NO NOTED LEAKS - RT NOTIFIED, RT ASSESSED AND ADJUSTED O2 BLEED IN. HAS BEEEN RESTING QUIETLY WITH NO NOTED DISTRESS SINCE. RESTING QUIETLY AT THIS TIME. CALL LIGHT IN REACH. HOB ELEVATED FOR COMFORT.
[2020-03-23 05:30] LABS: Anion Gap 2 mmol/L (6-16); Blood Urea Nitrogen 27 mg/dL (8-24); Bun/Creatinine Ratio 41.4 (12.0-20.0); CO2, Blood 42 mmol/L (21-32); Chloride, Blood 98 mmol/L (98-108); Creatinine, Blood 0.65 mg/dL (0.40-1.00); Glomerular Filtration Rate >60 (60-); Glucose, Blood 93 mg/dL (70-99); Sodium, Blood 142 mmol/L (136-145)
--- NOTE | 2020-03-23 18:00 | NUR ---
Initial spiritual care note: Mrs. Amaya declined pastoral care. I will remain available.
--- NOTE | 2020-03-23 18:26 | NUR ---
SHIFT SUMMARY PT A&O X3 PLEASENT AND COOPERATIVE. UP 1 ASSIST TO BSC MANY TIMES TODAY AND CHAIR FOR MEALS. PT DESATS WITH ACTIVITY BUT RECOVERS WITH REST. OFF/ON BIPAP TODAY AND 4L O2 VIA NC. PT DECLINES TO TAKE METOPROLOL, LISINOPRIL, AND LOVENOX- DR HARKINS IS AWARE. PLAN IS FOR DISCHARGE TO SNF, POSSIBLY TOMORROW.
[2020-03-24 05:40] LABS: BASOPHILS ABSOLUTE AUTO 0.03 K/mm3 (0.00-0.23); BASOPHILS PERCENT AUTO 0 % (0-2); EOSINOPHILS ABSOLUTE AUTO 0.14 K/mm3 (0.00-0.68); EOSINOPHILS PERCENT AUTO 2 % (0-6); Hematocrit 44.5 % (33.0-51.0); Hemoglobin 13.2 g/dL (11.5-16.0); IMMATURE GRAN ABSOLUTE AUTO 0.02 K/mm3 (0.00-0.10); IMMATURE GRAN PERCENT AUTO 0 % (0-1); LYMPHOCYTES ABSOLUTE AUTO 0.68 K/mm3 (0.84-5.20); LYMPHOCYTES PERCENT AUTO 9 % (21-46); MONOCYTES PERCENT AUTO 18 % (4-13); Mean Corpuscular HGB 31.4 pg (26.0-34.0); Mean Corpuscular HGB Conc 29.7 g/dL (31.5-36.5); Mean Corpuscular Volume 106 fL (80-100); Mean Platelet Volume 11.6 fL (9.1-12.4); NEUTROPHILS ABSOLUTE AUTO 5.23 K/mm3 (1.96-9.15); NEUTROPHILS PERCENT AUTO 71 % (41-73); Platelet Count 141 K/mm3 (150-400); RDW Coefficient Variation 15.2 % (11.7-14.2)
[2020-03-24 05:54] LABS: Blood Urea Nitrogen 25 mg/dL (8-24); Bun/Creatinine Ratio 42.3 (12.0-20.0); Calcium, Blood 9.4 mg/dL (8.5-10.1); Chloride, Blood 92 mmol/L (98-108); Creatinine, Blood 0.59 mg/dL (0.40-1.00); Glomerular Filtration Rate >60 (60-); Glucose, Blood 93 mg/dL (70-99); Potassium, Blood 3.6 mmol/L (3.5-5.5); Sodium, Blood 142 mmol/L (136-145)
[2020-03-24 05:55] LABS: CO2, Blood >45 mmol/L (21-32)
[2020-03-24 05:56] LABS: Anion Gap Unable to Calculate mmol/L (6-16)
--- NOTE | 2020-03-24 07:12 | NUR ---
SHIFT SUMMARY PATIENT ALERT AND ORIENTED. WENT TO BED ABOUT 0200 AND WORE HER BIPAP THE REST OF THE NIGHT. PATIENT HAD A CRITICAL TERRENCE CO2 THIS MORNING OF >45, NET DEVELOPER ARCHITECT PHYSICIAN DR CARPENTER NOTIFIED. PATIENT HAD NO COMPLAINTS OF PAIN OR SHORTNESS OF BREATH. IV PATENT AND FLUSHED. BED IN LOWEST POSITION WITH WHEELS LOCKED. CALL LIGHT WITHIN REACH. REPORT GIVEN TO ONCOMING RN.
--- NOTE | 2020-03-24 18:46 | NUR ---
SHIFT SUMMARY. ALERT, ORIENTATED X3, COOPERATIVE WITH CARE. PT DENIES PAIN, N/V. PT REPORTS DYSPNEA WITH EXERTIONS. SBA WITH FWW TO BSC. PT REFUSING METOPROLOL TODAY, TELE AFIB 90'S-120, PT EDUCATED ON IMPORTANCE OF TAKING METOPROLOL, PT CONTINUED TO REFUSE. NOC RN TO ATTEMPT TO GIVE HS DOSE OF METOPROLOL HR WENT UP TO 160 BPM WHEN TRANSFERING TO CHAIR FOR DINNER. HR 115 AT THIS TIME.
--- NOTE | 2020-03-25 06:24 | NUR ---
SHIFT SUMMARY PATIENT ALERT AND ORIENTED. HAD NO COMPLAINTS OF PAIN OR SHORTNESS OF BREATH. PATIENT REFUSED HER 2100 METOPROLOL EVEN THOUGH THIS RN EXPLAINED THE REASON AND BENEFITS OF TAKING THE MEDICATION. PATIENT ALSO DID NOT WANT TO WEAR HER BIPAP OVERNIGHT. IV PATENT AND FLUSHED. BED IN LOWEST POSITION WITH WHEELS LOCKED AND ALARM ON. CALL LIGHT WITHIN REACH. REPORT GIVEN TO ONCOMING RN.
--- NOTE | 2020-03-25 17:53 | NUR ---
SHIFT SUMMARY. A&OX3, SBA WITH FWW TO BSC. PT RESTITANT TO TAKING ORDERED MEDICATIONS, 30 MINUTES OF EDUCATION PERFORMED AT TIME OF MED PASS, PT ACKNOWLEDGED RISKS OF REFUSING MEDICATION TREATMENT. TELE AFIB 90-120 BPM ALTHOUGH RISES TO 140-160 BPM WITH ANY EXERTION. PT DENIES PAIN, N/V. PT REPORTS SOB WITH EXERTION, CONTINUES WITH 4L O2 NC, LUNGS CLEAR ALTHOUGH DIM IN THE BASES. PT REFUSING SNF PLACEMENT, IT IS REPORTED THAT SHE HAS 16 STAIRS TO GET INTO HER HOME, PT/OT DID NOT FEEL COMFORTABLE ASSESSING PT'S STAIR CLIMBING ABILITY AT THIS TIME DUE TO CARDIAC AND RESPIRATORY STATUS.
--- NOTE | 2020-03-25 19:22 | NUR ---
1710 RECIEVED CALL FROM PT'S DAUGHTER CRUZ THAT SHE WAS HERE TO INFLATED BALL MOLDER PT FOR DISCHARGE. CRUZ WAS NOTIFIED THAT PT WAS PROBABLY NOT GOING TO BE ABLE TO WALK 16 STAIRS TO ENTRANCE OF HOME, SHE HAS REFUSING MEDICATIONS AND HER HEART RATE IS POOR CONTROLLED. COMMERCIAL FINANCE MANAGER CALLED SEVERAL TIMES TODAY AND REPORTED HR OF UP TO 160 BPM WITH SMALL STEPS TO BSC. CURZ REPORTED THAT SHE WAS DOWN FROM [place] TO ASSIST PT WITH HELP AT HOME. CRUZ NOTIFIED THAT CM WOULD BE AVAILABLE [facility] TO ASSIST WITH PT RESOURCES POSSIBLY. CRUZ SAID THAT SHE WILL TALK TO PT ABOUT STAYING ANOTHER NIGHT TO POSSIBLY RECIEVE ASSISTANCE WITH SETTING UP HOME RESOURCES AND THAT SHE WOULD ENCOURAGE PT TO TAKE HER HS MEDICATIONS TO ASSIST WITH HER HR.
--- NOTE | 2020-03-25 21:08 | NUR ---
PATIENT LEFT AMA WITH BANDAR ACUNA. HOSPITALIST AWARE. TRIED EXTENSIVELY TO GET PATIENT TO STAY SHE IS NOT STRONG OR WELL ENOUGH TO DISCHARGE HOME. FAMILY INFORMED AND COULDN'T CHANGE PATIENT'S MIND. DISCHARGE AGAINST MEDICAL ADVICE FORM SIGNED AND ON CHART. PATIENT GIVEN COPY.
== END 2020-03-25 21:06 | disposition left against medical advice (07) | DRG 291 ==
LOC: ER 19:50 → PCU 23:05 → MEDS 03-21 18:36 → ENPENDDIS 03-25 12:50 → MEDS 03-25 21:06
PROVIDERS: Emergency Medicine; Family Medicine; Hospitalist; Internal Medicine; ADMIT Internal Medicine
PROC: 0W993ZZ Drainage of Right Pleural Cavity, Percutaneous Approach (ICD-10-PCS; principal; 2020-03-21)
DX: I11.0 Hypertensive heart disease with heart failure (principal); J96.21 Acute and chronic respiratory failure with hypoxia; J96.22 Acute and chronic respiratory failure with hypercapnia; I48.91 Unspecified atrial fibrillation; I50.23 Acute on chronic systolic (congestive) heart failure; J44.9 Chronic obstructive pulmonary disease, unspecified; F17.210 Nicotine dependence, cigarettes, uncomplicated; Z99.81 Dependence on supplemental oxygen; Z91.14 Patient's other noncompliance with medication regimen
CPT/HCPCS: 32555; 36415; 36600; 71045; 71046; 80048; 80053; 82042; 82803; 83615; 83880; 83986; 84155; 84478; 84484; 85025; 85610; 87070; 87205; 88108; 89051; 93005; 93010; 94660; 94762; 96374; 97110; 97110-CQ; 97112-CQ; 97129; 97162; 97166; 97530; 97535; 99285-25; A9270-GY; J1940; U0003

== ENCOUNTER → 2020-06-13 | Outpatient (CLI) | payer MEDICARE, OTHER ==
[~2020-06-13] MED LIST changes: +POTCHL10ER PO
[2020-06-13 19:46] LABS: BASOPHILS ABSOLUTE AUTO 0.07 K/mm3 (0.00-0.23); BASOPHILS PERCENT AUTO 1 % (0-2); EOSINOPHILS ABSOLUTE AUTO 0.64 K/mm3 (0.00-0.68); EOSINOPHILS PERCENT AUTO 5 % (0-6); Hematocrit 47.9 % (33.0-51.0); Hemoglobin 15.7 g/dL (11.5-16.0); IMMATURE GRAN ABSOLUTE AUTO 0.06 K/mm3 (0.00-0.10); IMMATURE GRAN PERCENT AUTO 1 % (0-1); LYMPHOCYTES ABSOLUTE AUTO 1.62 K/mm3 (0.84-5.20); LYMPHOCYTES PERCENT AUTO 13 % (21-46); MONOCYTES ABSOLUTE AUTO 1.23 K/mm3 (0.16-1.47); MONOCYTES PERCENT AUTO 10 % (4-13); Mean Corpuscular HGB 31.5 pg (26.0-34.0); Mean Corpuscular HGB Conc 32.8 g/dL (31.5-36.5); Mean Corpuscular Volume 96 fL (80-100); Mean Platelet Volume 10.8 fL (9.1-12.4); NEUTROPHILS PERCENT AUTO 71 % (41-73); Platelet Count 247 K/mm3 (150-400); RDW Coefficient Variation 13.2 % (11.7-14.2); Red Blood Cell Count 4.99 M/mm3 (3.80-5.20); White Blood Cell Count 12.42 K/mm3 (4.00-11.30)
[2020-06-13 20:20] LABS: Alanine Aminotransfer (ALT/SGP 40 U/L (12-78); Albumin, Blood 3.4 g/dL (3.4-5.0); Albumin/Globulin Ratio 0.8 (0.8-1.8); Alk Phos 152 U/L (50-136); Anion Gap 7 mmol/L (6-16); Aspartate Aminotrans (AST/SGOT 45 U/L (12-37); Bilirubin, Total 0.6 mg/dL (0.1-1.0); Blood Urea Nitrogen 36 mg/dL (8-24); Bun/Creatinine Ratio 42.2 (12.0-20.0); CO2, Blood 25 mmol/L (21-32); Calcium, Blood 9.9 mg/dL (8.5-10.1); Chloride, Blood 101 mmol/L (98-108); Creatinine, Blood 0.85 mg/dL (0.40-1.00); Globulin, Blood 4.5 g/dL (2.2-4.0); Glomerular Filtration Rate >60 (60-); Glucose, Blood 93 mg/dL (70-99); Potassium, Blood 5.2 mmol/L (3.5-5.5); Sodium, Blood 133 mmol/L (136-145); Total Protein, Blood 7.9 g/dL (6.4-8.2)
== END | disposition home or self-care (01) ==
LOC: LAB SHORT 18:43 → PLD 18:43
PROVIDERS: Nurse Practitioner
DX: I50.22 Chronic systolic (congestive) heart failure (principal)
CPT/HCPCS: 80053; 85025

== ENCOUNTER → 2020-11-15 | Outpatient (CLI) | payer MEDICARE, OTHER ==
[2020-11-15 18:52] LABS: BASOPHILS ABSOLUTE AUTO 0.07 K/mm3 (0.00-0.23); BASOPHILS PERCENT AUTO 1 % (0-2); EOSINOPHILS ABSOLUTE AUTO 0.25 K/mm3 (0.00-0.68); EOSINOPHILS PERCENT AUTO 2 % (0-6); Hematocrit 37.2 % (33.0-51.0); Hemoglobin 12.3 g/dL (11.5-16.0); IMMATURE GRAN ABSOLUTE AUTO 0.03 K/mm3 (0.00-0.10); IMMATURE GRAN PERCENT AUTO 0 % (0-1); LYMPHOCYTES ABSOLUTE AUTO 1.32 K/mm3 (0.84-5.20); LYMPHOCYTES PERCENT AUTO 12 % (21-46); MONOCYTES ABSOLUTE AUTO 1.15 K/mm3 (0.16-1.47); MONOCYTES PERCENT AUTO 11 % (4-13); Mean Corpuscular HGB Conc 33.1 g/dL (31.5-36.5); Mean Corpuscular Volume 91 fL (80-100); NEUTROPHILS ABSOLUTE AUTO 7.79 K/mm3 (1.96-9.15); NEUTROPHILS PERCENT AUTO 73 % (41-73); Platelet Count 355 K/mm3 (150-400); RDW Coefficient Variation 13.3 % (11.7-14.2); RDW Standard Deviation 44.6 fL (35.1-46.3); White Blood Cell Count 10.61 K/mm3 (4.00-11.30)
[2020-11-15 20:40] LABS: Alanine Aminotransfer (ALT/SGP 31 U/L (12-78); Albumin, Blood 3.5 g/dL (3.4-5.0); Albumin/Globulin Ratio 0.8 (0.8-1.8); Alk Phos 156 U/L (50-136); Anion Gap 2 mmol/L (6-16); Aspartate Aminotrans (AST/SGOT 26 U/L (12-37); Bilirubin, Total 0.6 mg/dL (0.1-1.0); Blood Urea Nitrogen 27 mg/dL (8-24); Bun/Creatinine Ratio 24.3 (12.0-20.0); CHOL/HDL RATIO 2.8; CO2, Blood 31 mmol/L (21-32); Calcium, Blood 10.2 mg/dL (8.5-10.1); Chloride, Blood 99 mmol/L (98-108); Cholesterol 187 mg/dL (50-200); Creatinine, Blood 1.11 mg/dL (0.40-1.00); Globulin, Blood 4.4 g/dL (2.2-4.0); Glomerular Filtration Rate 52 (60-); Glucose, Blood 94 mg/dL (70-99); HDL Cholesterol 66 mg/dL (>39); LDL/HDL RATIO 1.6; Low Density Lipoprotein Chol 105 mg/dL (0-110); Potassium, Blood 4.7 mmol/L (3.5-5.5); Sodium, Blood 132 mmol/L (136-145); Total Protein, Blood 7.9 g/dL (6.4-8.2); Triglycerides 82 mg/dL (30-160); Very Low Density Lipoprot Chol 16 mg/dL (6-32)
== END | disposition home or self-care (01) ==
LOC: LAB 17:36 → LAB SHORT 17:36
PROVIDERS: Nurse Practitioner
DX: Z13.6 Encounter for screening for cardiovascular disorders (principal); I10 Essential (primary) hypertension
CPT/HCPCS: 80053; 80061; 85025

== ENCOUNTER → 2023-01-10 | Outpatient (CLI) | payer MEDICARE, OTHER ==
[2023-01-10 19:18] LABS: BASOPHILS ABSOLUTE AUTO 0.07 K/mm3 (0.00-0.23); BASOPHILS PERCENT AUTO 1 % (0-2); EOSINOPHILS ABSOLUTE AUTO 0.17 K/mm3 (0.00-0.68); EOSINOPHILS PERCENT AUTO 2 % (0-6); Hematocrit 42.6 % (33.0-51.0); Hemoglobin 14.2 g/dL (11.5-16.0); IMMATURE GRAN ABSOLUTE AUTO 0.02 K/mm3 (0.00-0.10); IMMATURE GRAN PERCENT AUTO 0 % (0-1); LYMPHOCYTES ABSOLUTE AUTO 1.45 K/mm3 (0.84-5.20); LYMPHOCYTES PERCENT AUTO 14 % (21-46); MONOCYTES ABSOLUTE AUTO 1.13 K/mm3 (0.16-1.47); MONOCYTES PERCENT AUTO 11 % (4-13); Mean Corpuscular HGB 30.9 pg (26.0-34.0); Mean Corpuscular HGB Conc 33.3 g/dL (31.5-36.5); Mean Corpuscular Volume 93 fL (80-100); Mean Platelet Volume 11.4 fL (9.1-12.4); NEUTROPHILS PERCENT AUTO 74 % (41-73); Platelet Count 256 K/mm3 (150-400); RDW Coefficient Variation 13.2 % (11.7-14.2); RDW Standard Deviation 45.1 fL (35.1-46.3); Red Blood Cell Count 4.59 M/mm3 (3.80-5.20); White Blood Cell Count 10.74 K/mm3 (4.00-11.30)
[2023-01-10 19:32] LABS: Alanine Aminotransfer (ALT/SGP 24 U/L (12-78); Albumin, Blood 3.7 g/dL (3.4-5.0); Albumin/Globulin Ratio 1.1 (0.8-1.8); Alk Phos 73 U/L (50-136); Anion Gap 2 mmol/L (6-16); Aspartate Aminotrans (AST/SGOT 19 U/L (12-37); Bilirubin, Total 0.7 mg/dL (0.1-1.0); Blood Urea Nitrogen 18 mg/dL (8-24); Bun/Creatinine Ratio 17.8 (12.0-20.0); CHOL/HDL RATIO 2.7; CO2, Blood 30 mmol/L (21-32); Calcium, Blood 9.6 mg/dL (8.5-10.1); Chloride, Blood 105 mmol/L (98-108); Cholesterol 171 mg/dL (50-200); Creatinine, Blood 1.01 mg/dL (0.40-1.00); Globulin, Blood 3.5 g/dL (2.2-4.0); Glomerular Filtration Rate 60 (60-); Glucose, Blood 93 mg/dL (70-99); HDL Cholesterol 64 mg/dL (>39); LDL/HDL RATIO 1.5; Low Density Lipoprotein Chol 96 mg/dL (0-110); Potassium, Blood 4.8 mmol/L (3.5-5.5); Sodium, Blood 137 mmol/L (136-145); Total Protein, Blood 7.2 g/dL (6.4-8.2); Triglycerides 57 mg/dL (30-160); Very Low Density Lipoprot Chol 11 mg/dL (6-32)
== END | disposition home or self-care (01) ==
LOC: LAB 17:34 → LAB SHORT 17:34
PROVIDERS: Nurse Practitioner Family
DX: I50.22 Chronic systolic (congestive) heart failure (principal)
CPT/HCPCS: 80053; 80061; 85025

== ENCOUNTER 2025-06-10 11:14 | Emergency (ER) | payer MEDICARE, OTHER ==
[~2025-06-10] VITALS: Ht 167.6 cm; Wt 95.2 kg
[2025-06-10 12:17] VITALS: BP 131/101
== END 2025-06-10 15:43 | disposition home or self-care (01) ==
LOC: ER 11:14
DX: M79.81 Nontraumatic hematoma of soft tissue (principal); M79.662 Pain in left lower leg; M79.89 Other specified soft tissue disorders; I11.0 Hypertensive heart disease with heart failure; I50.9 Heart failure, unspecified; J44.9 Chronic obstructive pulmonary disease, unspecified; F17.200 Nicotine dependence, unspecified, uncomplicated
CPT/HCPCS: 93971; 99283-25